=== PATIENT | female | born 1940 | race Caucasian/White ===

== ENCOUNTER 2018-09-29 00:07 | Emergency (ER) | payer MEDICARE, SELFPAY ==
[2018-09-29] VITALS (11 sets, daily range): BP systolic 105–131; BP diastolic 64–85; PULSE 72–98; RESP 18–24; TEMP 36.4–36.8; O2SAT 80–98
[2018-09-29 00:20] LABS: Abs Immature Grans 0.01 k/cumm (0.0-0.09); Absolute Basophil Count 0.04 k/cumm (0.0-0.2); Absolute Eosinophil Count 0.23 k/cumm (0.0-0.7); Absolute Lymphocyte Count 4.22 k/cumm (1.2-3.4); Absolute Monocyte Count 0.65 k/cumm (0.11-0.7); Absolute Neutrophil Count 5.46 k/cumm (1.2-6.7); Basophils % 0.4; Eosinophils % 2.2; HCT 37.1 % (36.0-46.0); HGB 11.9 g/dL (12.0-15.5); Immature Grans % 0.1; Lymphocytes % 39.8; Mean Corp. HGB Concentration 32.1 g/dL (32.0-36.0); Mean Corpuscular Hemoglobin 31.6 pg (27.0-33.0); Mean Corpuscular Volume 98.4 fL (80-95); Monocytes % 6.1; Neutrophils % 51.4; Platelet Count 282 x1000/uL (130-400); RBC 3.77 m/cumm (4.00-5.20); RBC Distribution Width 13.2 % (11.7-14.6); White Blood Cell Count 10.61 k/cumm (4.4-10.8)
--- NOTE | 2018-09-29 00:27 | W.ED.GENAD ---
Discharge Plan Disposition Patient Disposition: HOME Discharge Details Chief Complaint: SOB Clinical Impression: Acute CHF (congestive heart failure), Acute hyperkalemia Primary Care Provider: Janet Mccrary ED Provider: Jonatan Savage Home Meds and New Rx's Prescriptions: Continue calcitriol 0.25 MCG capsule 0.25 mcg PO DAILY RF: 0 metoprolol succinate 50 MG tablet extended release 24 hr 50 mg PO DAILY RF: 0 sodium bicarbonate 650 MG tablet 1 tab PO DAILY RF: 0 nitroglycerin 0.4 MG tablet, sublingual 0.4 mg Sublingual PRN PRNRF: 0 aspirin [Aspirin Low-Strength] 81 MG tablet,chewable 81 mg PO DAILY RF: 0 torsemide [Demadex] 20 MG tablet 20 mg PO DAILY RF: 0 Discharge Instructions Instructions: Pulmonary Edema (ED) Additional Instructions: Please follow-up with your primary care physician, all source collection manager and baking powder mixer. Please go to dialysis today as scheduled. Please return to the emergency department at any time for further treatment. Referrals: Tian Siddiqui MD [ [facility] STAFF PHYSICIAN] - Medical Decision Making 00:40 --patient seen immediately on arrival. 78-year-old female with history of end-stage renal disease on hemodialysis, congestive heart failure, here tonight with sudden onset of shortness of breath while she was sleeping. Patient hypoxic and tachycardic on arrival. Supplemental oxygen applied by nasal cannula and patient is much improved. She is currently saturating in the upper 90s on 4 L nasal cannula. She does have faint rales bilateral bases. I am concerned for acute CHF with flash pulmonary edema. Plan to check portable chest x-ray. I will send a BNP. Patient took a double dose of diuretic prior to arrival. Patient was given a single sublingual nitroglycerin here for preload reduction and her blood pressure decreased significantly to SBP 100. Will hold additional nitro. 1:05 -- Labs reviewed: chronic kidney disease noted, BNP elevated. cxr reviewed and interpreted by radiology: There are diffuse interstitial infiltrates present, this may represent cardiogenic versus noncardiogenic edema. An acute inflammatory process and/or infectious process/pneumonia not excluded. Patient reassessed: improved on O2, no respiratory distress, saturating 97% on NC. I recommended transfer to [facility] or [facility] for further diagnostics and treatment including dialysis. Patient refused transfer. Patient has decision-making capacity. I reviewed my specific concerns with the patient and potential that she may have life-threatening her lifestyle modifying disease that I cannot treat here and that would likely benefit from treatment at a dialysis capable facility - patient verbalized understanding of my concern, as did her , and refused transfer. 1:30 -- Patient ambulated to bathroom with no difficulty. Urinated. Saturating well with no respiratory distress off oxygen. Patient requesting discharge. I encouraged her to go to dialysis this morning and to return to the ER at any time for further treatment including expedited transfer as recommended. ECG Data Attestation: I personally reviewed and interpreted this ECG (s) as follows: (Sinus tachycardia 104 bpm, T wave inversions with ST depressions noted in lead I and aVL, normal axis) Prior ECG tracings: available for review (ST depressions and T wave inversions were noted on prior EKG 03/24/18) HPI General Mode of arrival: ambulatory. Date/Time Provider Initiated Documentation: 09/29/18 00:08. Limitations to Documentation: no limitations. Information obtained by: patient. HPI Narrative: 78yo f with history of congestive heart failure, end-stage renal disease on hemodialysis Saturday with no recently missed sessions, presents tonight with chief complaint of shortness of breath. Patient notes that she was feeling well today and went to bed around 8 PM. She woke up suddenly feeling short of breath. Shortness of breath is severe. Symptoms are similar to when she had a flareup in March. Patient has been told to take additional diuretic when she has these symptoms and did take 2 tablets of her diuretic prior to arrival. She denies associated chest pain, cough, leg pain or swelling. Related Data Home Medications Medication Instructions Recorded Confirmed calcitriol 0.25 mcg PO DAILY 06/22/14 09/29/18 aspirin [Aspirin Low-Strength] 81 mg PO DAILY 12/24/16 09/29/18 metoprolol succinate 50 mg PO DAILY 12/24/16 09/29/18 nitroglycerin 0.4 mg SUBLINGUAL PRN PRN 12/24/16 09/29/18 sodium bicarbonate 1 tab PO DAILY 12/24/16 09/29/18 torsemide [Demadex] 20 mg PO DAILY 04/02/17 09/29/18 Allergies Allergy/AdvReac Type Severity Reaction Status Date / Time No Known Allergies Allergy Unverified 09/29/18 00:28 General Stated Complaint: SOB ARIES: 2 Review of Systems Review of Systems All systems reviewed & are unremarkable except as noted in HPI and below Constitutional Denies fever(s) Cardiovascular Denies chest pain and Reports dyspnea Respiratory Denies cough and Reports dyspnea PFSH ESRD on hemodialysis (Acute) CHF (congestive heart failure) (Chronic) Medical History ESRD on hemodialysis (Acute) CHF (congestive heart failure) (Chronic) Social History Smoking/Tobacco Use Status: Never Social History Smoking/Tobacco Use Status: Never Exam Const General: cooperative and in distress respiratory Orientation: alert HENMT Head: normocephalic and atraumatic Mouth: moist mucous membranes Eyes Conjunctivae: normal conjunctivae Sclera: normal sclerae Neck Neck: trachea midline and supple Resp Auscultation: rales bilaterally in the lower lung acuña, no rhonchi and no wheezes Cardio Jugular venous pressure: no JVD Rate: regular rate and not tachycardic Rhythm: regular rhythm GI Palpation: soft, not firm, no guarding, no masses, not rigid and nontender Skin General skin exam: no rashes or lesions noted Neuro General: alert, awake, oriented x3 and tone normal Extrem General: no calf tenderness bilaterally and no edema Psych Appearance: grossly normal Mental Status: mental status grossly normal Speech and Movement: speech and movement normal Course Vital Signs Temperature 36.4 C L 09/29/18 00:21 Pulse 98 H 09/29/18 00:21 Respiratory Rate 22 09/29/18 00:21 Blood Pressure 131/85 09/29/18 00:21 Pulse Oximetry 96 09/29/18 00:21 Temperature 36.4 C L 09/29/18 00:21 Temperature Source Temporal Artery Scan 09/29/18 00:21 Pulse 98 H 09/29/18 00:21 Respiratory Rate 22 09/29/18 00:21 Respiratory Effort Labored 09/29/18 00:26 Blood Pressure 131/85 09/29/18 00:21 Blood Pressure Position Sitting 09/29/18 00:21 Pulse Oximetry 96 09/29/18 00:21 Oxygen Delivery Method Nasal Cannula 12/10/18 00:21 Oxygen Flow Rate 4 09/29/18 00:21 Pain Level 0 09/29/18 00:21 Lab/Test Results Lab/Test Results: Laboratory Tests Range/Units 09/29/18 00:15 WBC (4.4-10.8) k/cumm 10.61 RBC (4.00-5.20) m/cumm 3.77 L Hgb (12.0-15.5) g/dL 11.9 L Hct (36.0-46.0) % 37.1 MCV (80-95) fL 98.4 H MCH (27.0-33.0) pg 31.6 MCHC (32.0-36.0) g/dL 32.1 RDW (11.7-14.6) % 13.2 Plt Count (130-400) x1000/uL 282 MPV (8.0-11.0) fL 10.0 Immature Gran % 0.1 Neutrophils % 51.4 Lymphocytes % 39.8 Monocytes % 6.1 Eosinophils % 2.2 Basophils % 0.4 Absolute Neutrophils (1.2-6.7) k/cumm 5.46 Absolute Lymphocytes (1.2-3.4) k/cumm 4.22 H Absolute Monocytes (0.11-0.7) k/cumm 0.65 Absolute Eosinophils (0.0-0.7) k/cumm 0.23 Absolute Basophils (0.0-0.2) k/cumm 0.04
[2018-09-29 00:48] LABS: ALT 13 U/L (12-78); AST 16 U/L (15-37); Albumin 3.6 g/dL (3.4-5.0); Alkaline Phosphatase 65 U/L (46-116); Anion Gap 16.1 mmol/L (3-11); Bilirubin, Total 0.4 mg/dL (0.2-1.0); CO2 23.9 mmol/L (21.0-32.0); Calcium 8.9 mg/dL (8.5-10.1); Chloride 98 mmol/L (98-107); Estimated GFR 5.36 (mL/min/1.73m2); Glucose 203 mg/dL (70-100); Magnesium 2.3 mg/dL (1.8-2.4); NT-proBNP 33224 pg/mL; Potassium 4.7 mmol/L (3.5-5.1); Sodium 138 mmol/L (136-145); Total Protein 8.1 g/dL (6.4-8.2); Troponin I 0.02 ng/mL (0.00-0.06)
[2018-09-29 00:49] LABS: CREATININE 7.34 mg/dL (0.55-1.02)
[2018-09-29 00:55] LABS: BUN 62 mg/dL (7-18)
--- NOTE | 2018-09-29 00:55 | DI.RAD_ITS ---
SYMPTOM/DIAGNOSIS: SHORTNESS OF BREATH PORTABLE CHEST: Comparison is made with 24 March 2018. The heart is again noted to be grossly enlarged. The aorta is tortuous. Leads over lie the chest. There are increased interstitial markings and pulmonary artery prominence suspicious for CHF. No focal infiltrate or effusion is visible. Severe degenerative changes are seen in the shoulders, right greater than left. IMPRESSION: Cardiomegaly and CHF
--- NOTE | 2018-09-29 01:01 | DI.VRAD_ITS ---
EXAM: XR Chest, 1 View EXAM DATE/TIME: 09/29/2018 12:53 AM CLINICAL HISTORY: 78 years old, female; Signs and symptoms; Shortness of breath TECHNIQUE: XR of the chest, 1 view. COMPARISON: CR XR PORTABLE CHEST AP 09/29/2018 12:21 AM FINDINGS: Lungs: There are diffuse interstitial infiltrates present. An acute inflammatory process and/or infectious process/pneumonia are not excluded. The pulmonary vasculature is normal in caliber. Pleural space: There is no evidence of pneumothorax. There are no pleural effusions present. Heart/Mediastinum: There is moderate cardiomegaly. Vasculature: The aorta is tortuous and there is possible aneurysmal dilatation of the descending thoracic aorta. Bones/joints: The skeletal structures and soft tissues show no evidence of fracture or other acute processes. There are degenerative changes of the shoulder girdles right greater than left. Soft tissues: This may represent cardiogenic versus noncardiogenic edema. The soft tissues of the extrathoracic region are unremarkable. IMPRESSION: There are diffuse interstitial infiltrates present. This may represent cardiogenic versus noncardiogenic edema. An acute inflammatory process and/or infectious process/pneumonia are not excluded. Dictated and Authenticated by: Walter Turpin MD. Ordering:ARMANDO CONKLIN MD
--- NOTE | 2018-09-29 01:03 | NUR.NOTE ---
Nursing Note: pt able to resting semi fowlers at this time in bed without respiratory distress.
--- NOTE | 2018-09-29 01:22 | NUR.NOTE ---
Nursing Note: pt ambulated on RA to BR and around facility. SaO2 noted to range 94-96%.
== END 2018-09-29 01:44 | disposition home or self-care (01) ==
LOC: ER 01:48
PROVIDERS: Emergency Provider Student in an Organized Health Care Education/Training Program
DX: R09.02 Hypoxemia (principal); I50.9 Heart failure, unspecified; I13.2 Hypertensive heart and chronic kidney disease with heart failure and with stage 5 chronic kidney disease, or end stage renal disease; N18.6 End stage renal disease; Z99.2 Dependence on renal dialysis; E87.5 Hyperkalemia
CPT/HCPCS: 36415; 80053; 93005; 99285; 71045; 83735; 83880; 84484; 85025; 93010

== ENCOUNTER 2019-02-25 23:32 | Emergency (ER) | payer OTHER, SELFPAY ==
--- NOTE | 2019-02-25 00:15 | DI.RAD_ITS ---
SYMPTOM/DIAGNOSIS: COUGH AP AND LATERAL CHEST: The heart is enlarged. The lungs are grossly clear. No pleural effusion is seen. CONCLUSION: Cardiomegaly. No evidence of acute intrapulmonary process.
[2019-02-25 23:41] VITALS: BP 140/66; PULSE 99; RESP 18; TEMP 38.2; O2SAT 94
--- NOTE | 2019-02-25 23:45 | W.ED.GENAD ---
Discharge Plan Disposition Patient Disposition: HOME Condition: Stable Discharge Details Chief Complaint: RespSymp Clinical Impression: Cough Primary Care Provider: Janet Mccrary ED Provider: John Vidal Home Meds and New Rx's Prescriptions: New levofloxacin 750 mg tablet 750 mg PO DAILY Qty: 5 RF: 0 No Action metoprolol succinate 50 MG tablet extended release 24 hr 50 mg PO DAILY RF: 0 nitroglycerin 0.4 MG tablet, sublingual 0.4 mg Sublingual PRN PRNRF: 0 aspirin [Aspirin Low-Strength] 81 MG tablet,chewable 81 mg PO DAILY RF: 0 torsemide [Demadex] 20 MG tablet 20 mg PO DAILY RF: 0 losartan 50 mg Tablet 50 mg PO DAILY RF: 0 spironolactone 25 mg Tablet 25 mg PO DAILY RF: 0 ropinirole 0.25 mg Tablet 0.25 mg PO HS RF: 0 Discharge Instructions Instructions: Acute Cough (ED) Additional Instructions: follow up with your primary care provider especially if symptoms continue within a week Return to the emergency department if you feel more ill, or have worsening shortness of breath or chest pain/pressure Medical Decision Making 78 yo female with hx of erd on dialysis mwf who comes in with complaints of several days of worsening cough with shortness of breath. She states this started on Saturday when she was in [place], states she went to a local ED down there, had an xray and was given a dose of lasix and d/c'd. Cough has persistent so came here. is not getting anything up per pt, no chest pain or travel outside the country. She is in no distress on exam with crackles at the bases bilaterally. Is noted to have a temperature here, will obtain labs, cultures and xray and also test for influenza. pt's xray and lab work shows no acute concerning findings, probnp elevated but has no evidence of volume overload at this time and is chronically elevated. she remanis stable. Given her symptoms I feel tx for early pneumonia is indicated. She wants to go home rather than be admitted which I feel is reasonable given HD stability and well appearance. Advised f/u with pcp and return precautions given Differential Diagnosis influenza, pna, bronchitis Medical Records Medical records reviewed: Yes I reviewed the patient's medical records. Imaging Data Radiologic Study: Attestation: I personally reviewed and interpreted this imaging study as follows: Imaging: X-Ray Radiologist's impression: no acute findings Lab Data Lab results reviewed: Yes I reviewed the patient's lab results. HPI General Mode of arrival: ambulatory. Date/Time Provider Initiated Documentation: 02/25/19 23:34. Limitations to Documentation: no limitations. Information obtained by: patient. History of Present Illness 78 year old F presents to the emergency department with the chief complaint of cough, described as moderate, Patient started experiencing this day(s) (3) and it has been intermittent. No relieving factors improve symptom(s), No exacerbating factors reported . Patient notes other (short of breath). Patient did receive the following treatments prior to arrival, none Related Data Home Medications Medication Instructions Recorded Confirmed aspirin [Aspirin Low-Strength] 81 mg PO DAILY 12/24/16 02/25/19 metoprolol succinate 50 mg PO DAILY 12/24/16 02/25/19 nitroglycerin 0.4 mg SUBLINGUAL PRN PRN 12/24/16 02/25/19 torsemide [Demadex] 20 mg PO DAILY 04/02/17 02/25/19 losartan 50 mg PO DAILY 02/25/19 02/25/19 ropinirole 0.25 mg PO HS 02/25/19 02/25/19 spironolactone 25 mg PO DAILY 02/25/19 02/25/19 levofloxacin 750 mg PO DAILY #5 tab 02/26/19 Previous Rx's Medication Instructions Recorded levofloxacin 750 mg PO DAILY #5 tab 02/26/19 Allergies Allergy/AdvReac Type Severity Reaction Status Date / Time No Known Allergies Allergy Unverified 02/25/19 23:47 General ARIES: 2 Review of Systems Review of Systems All systems reviewed & are unremarkable except as noted in HPI and below Constitutional Denies weakness Cardiovascular Denies chest pain Gastrointestinal Denies abdominal pain, Denies nausea and Denies vomiting Integumentary/Breasts Denies rash Neurologic Denies weakness [facility] Social History Smoking/Tobacco Use Status: Never Drug use: Never Do you feel safe in your relationship?: Yes Exam Const General: no acute distress Orientation: alert HENMT Head: normal to inspection Ears: external ears normal General nose exam: external nose normal Mouth: moist mucous membranes Eyes General: appearance normal, both eyes and all related structures Neck Neck: normal visual inspection Resp Effort & Inspection: normal respiratory effort and able to speak in complete sentences Cardio Rate: regular rate Skin General skin exam: no rashes or lesions noted Neuro General: alert and oriented x3 Extrem General: normal to inspection Psych Mental Status: mental status grossly normal Course Lab/Test Results Lab/Test Results: 02/25/19 23:42 Blood Blood Culture - Pending 02/25/19 23:42 Blood Blood Culture - Pending
--- NOTE | 2019-02-25 23:49 | ED.GENADUL_ITS ---
Discharge Plan Disposition Patient Disposition: HOME Condition: Stable Discharge Details Chief Complaint: RespSymp Clinical Impression: Cough Primary Care Provider: Janet Mccrary ED Provider: John Vidal Home Meds and New Rx's Prescriptions: New levofloxacin 750 mg tablet 750 mg PO DAILY Qty: 5 RF: 0 No Action metoprolol succinate 50 MG tablet extended release 24 hr 50 mg PO DAILY RF: 0 nitroglycerin 0.4 MG tablet, sublingual 0.4 mg Sublingual PRN PRNRF: 0 aspirin [Aspirin Low-Strength] 81 MG tablet,chewable 81 mg PO DAILY RF: 0 torsemide [Demadex] 20 MG tablet 20 mg PO DAILY RF: 0 losartan 50 mg Tablet 50 mg PO DAILY RF: 0 spironolactone 25 mg Tablet 25 mg PO DAILY RF: 0 ropinirole 0.25 mg Tablet 0.25 mg PO HS RF: 0 Discharge Instructions Instructions: Acute Cough (ED) Additional Instructions: follow up with your primary care provider especially if symptoms continue within a week Return to the emergency department if you feel more ill, or have worsening shortness of breath or chest pain/pressure Medical Decision Making 78 yo female with hx of erd on dialysis mwf who comes in with complaints of several days of worsening cough with shortness of breath. She states this started on Saturday when she was in [place], states she went to a local ED down there, had an xray and was given a dose of lasix and d/c'd. Cough has persistent so came here. is not getting anything up per pt, no chest pain or travel outside the country. She is in no distress on exam with crackles at the bases bilaterally. Is noted to have a temperature here, will obtain labs, cultures and xray and also test for influenza. pt's xray and lab work shows no acute concerning findings, probnp elevated but has no evidence of volume overload at this time and is chronically elevated. she remanis stable. Given her symptoms I feel tx for early pneumonia is indicated. She wants to go home rather than be admitted which I feel is reasonable given HD stability and well appearance. Advised f/u with pcp and return precautions given Differential Diagnosis influenza, pna, bronchitis Medical Records Medical records reviewed: Yes I reviewed the patient's medical records. Imaging Data Radiologic Study: Attestation: I personally reviewed and interpreted this imaging study as follows: Imaging: X-Ray Radiologist's impression: no acute findings Lab Data Lab results reviewed: Yes I reviewed the patient's lab results. HPI General Mode of arrival: ambulatory . Date/Time Provider Initiated Documentation: 02/25/19 23:34 . Limitations to Documentation: no limitations . Information obtained by: patient . History of Present Illness 78 year old F presents to the emergency department with the chief complaint of cough, described as moderate, Patient started experiencing this day(s) (3) and it has been intermittent. No relieving factors improve symptom(s), No exacerbating factors reported . Patient notes other (short of breath). Patient did receive the following treatments prior to arrival, none Related Data Home Medications Medication Instructions Recorded Confirmed aspirin [Aspirin Low-Strength] 81 mg PO DAILY 12/24/16 02/25/19 metoprolol succinate 50 mg PO DAILY 12/24/16 02/25/19 nitroglycerin 0.4 mg SUBLINGUAL PRN PRN 12/24/16 02/25/19 torsemide [Demadex] 20 mg PO DAILY 04/02/17 02/25/19 losartan 50 mg PO DAILY 02/25/19 02/25/19 ropinirole 0.25 mg PO HS 02/25/19 02/25/19 spironolactone 25 mg PO DAILY 02/25/19 02/25/19 levofloxacin 750 mg PO DAILY #5 tab 02/26/19 Previous Rx's Medication Instructions Recorded levofloxacin 750 mg PO DAILY #5 tab 02/26/19 Allergies Allergy/AdvReac Type Severity Reaction Status Date / Time No Known Allergies Allergy Unverified 02/25/19 23:47 General ARIES: 2 Review of Systems Review of Systems All systems reviewed & are unremarkable except as noted in HPI and below Constitutional Denies weakness Cardiovascular Denies chest pain Gastrointestinal Denies abdominal pain, Denies nausea and Denies vomiting Integumentary/Breasts Denies rash Neurologic Denies weakness [facility] Social History Smoking/Tobacco Use Status: Never Drug use: Never Do you feel safe in your relationship?: Yes Exam Const General: no acute distress Orientation: alert HENMT Head: normal to inspection Ears: external ears normal General nose exam: external nose normal Mouth: moist mucous membranes Eyes General: appearance normal, both eyes and all related structures Neck Neck: normal visual inspection Resp Effort & Inspection: normal respiratory effort and able to speak in complete sentences Cardio Rate: regular rate Skin General skin exam: no rashes or lesions noted Neuro General: alert and oriented x3 Extrem General: normal to inspection Psych Mental Status: mental status grossly normal Course Lab/Test Results Lab/Test Results: 02/25/19 23:42 Blood Blood Culture - Pending 02/25/19 23:42 Blood Blood Culture - Pending
[2019-02-26 00:22] LABS: Absolute Basophil Count 0.02 k/cumm (0.0-0.2); Absolute Eosinophil Count 0.11 k/cumm (0.0-0.7); Absolute Lymphocyte Count 0.31 k/cumm (1.2-3.4); Absolute Monocyte Count 0.36 k/cumm (0.11-0.7); Absolute Neutrophil Count 3.61 k/cumm (1.2-6.7); Basophils % 0.5; Eosinophils % 2.5; HCT 34.3 % (36.0-46.0); HGB 11.1 g/dL (12.0-15.5); Mean Corp. HGB Concentration 32.4 g/dL (32.0-36.0); Mean Corpuscular Hemoglobin 30.2 pg (27.0-33.0); Mean Corpuscular Volume 93.5 fL (80-95); Mean Platelet Volume 10.8 fL (8.0-11.0); Monocytes % 8.2; Neutrophils % 81.8; Platelet Count 184 x1000/uL (130-400); RBC 3.67 m/cumm (4.00-5.20); RBC Distribution Width 14.3 % (11.7-14.6); White Blood Cell Count 4.41 k/cumm (4.4-10.8)
--- NOTE | 2019-02-26 00:29 | DI.VRAD_ITS ---
EXAM: XR Chest, 2 Views EXAM DATE/TIME: 02/25/2019 11:42 PM CLINICAL HISTORY: 78 years old, female; Signs and symptoms; Patient HX: Cough for 4 days TECHNIQUE: Imaging protocol: XR of the chest, 2 views. COMPARISON: SC XR PORTABLE CHEST AP 09/29/2018 12:53 AM FINDINGS: Lungs: Subtle chronic interstitial changes. No evidence of any focal consolidation. Pleural space: Unremarkable. No evidence of pneumothorax. Heart/Mediastinum: Unremarkable. Heart size within normal limits for technique. Bones/joints: Unremarkable. IMPRESSION: No acute findings. Dictated and Authenticated by: Tian Saldaña MD. Ordering:BRENDAN Lopez MD
[2019-02-26 00:38] LABS: ALT 17 U/L (12-78); AST 30 U/L (15-37); Albumin 3.5 g/dL (3.4-5.0); Alkaline Phosphatase 59 U/L (46-116); Anion Gap 8.9 mmol/L (3-11); BUN 15 mg/dL (7-18); Bilirubin, Total 0.7 mg/dL (0.2-1.0); CO2 33.1 mmol/L (21.0-32.0); CREATININE 3.39 mg/dL (0.55-1.02); Calcium 9.1 mg/dL (8.5-10.1); Chloride 94 mmol/L (98-107); Estimated GFR 13.07 (mL/min/1.73m2); Glucose 122 mg/dL (70-100); NT-proBNP 106783 pg/mL; Potassium 3.3 mmol/L (3.5-5.1); Sodium 136 mmol/L (136-145); Total Protein 7.9 g/dL (6.4-8.2)
[2019-02-26] MEDS: levoFLOXacin 500 MG, levoFLOXacin 250 MG 750 MG PO (00:44)
[2019-02-26 00:55] VITALS: BP 111/66; PULSE 95; RESP 18; TEMP 37.9; O2SAT 90
== END 2019-02-26 00:59 | disposition home or self-care (01) ==
LOC: ER 02-26 00:59
PROVIDERS: Emergency Provider Emergency Medicine
DX: J18.9 Pneumonia, unspecified organism (principal); N18.6 End stage renal disease; Z99.2 Dependence on renal dialysis
CPT/HCPCS: 80053; 87040; 87449; 99283; 71046; 83880; 85025

== ENCOUNTER 2019-11-02 09:25 | Emergency (ER) | payer OTHER, SELFPAY ==
[2019-11-02] VITALS (32 sets, daily range): BP systolic 104–124; BP diastolic 54–72; PULSE 73–93; RESP 12–23; TEMP 36.8; O2SAT 90–100
--- NOTE | 2019-11-02 09:34 | W.ED.GENAD ---
Discharge Plan Disposition Patient Disposition: HOME Condition: Improving Discharge Details Chief Complaint: Chest Pain Clinical Impression: Atypical chest pain Primary Care Provider: Janet Mccrary ED Provider: Austen Herman Home Meds and New Rx's Prescriptions: Continued B complex with C 20-folic acid 1 mg Capsule 1 mg PO DAILY RF: 0 Velphoro 500 mg Tablet,Chewable 500 mg RF: 0 metoprolol succinate 50 MG tablet extended release 24 hr 100 mg PO DAILY RF: 0 nitroglycerin 0.4 MG tablet, sublingual 0.4 mg Sublingual PRN PRNRF: 0 aspirin [Aspirin Low-Strength] 81 MG tablet,chewable 81 mg PO DAILY RF: 0 torsemide [Demadex] 20 MG tablet 20 mg PO DAILY RF: 0 losartan 50 mg Tablet 50 mg PO DAILY RF: 0 spironolactone 25 mg Tablet 25 mg PO DAILY RF: 0 ropinirole 0.25 mg Tablet 0.5 mg PO HS RF: 0 levofloxacin 750 mg tablet 750 mg PO DAILY Qty: 5 RF: 0 Discharge Instructions Instructions: Chest Pain (ED) Additional Instructions: As we discussed we will hold on antibiotics at this time but you should remain vigilant for progression of the cough, development of sputum, development of a fever, or any other acute concerns. Continue your regular medications. Return to the ER for recurrent chest discomfort, the development of difficulty breathing, or any other acute concerns. Medical Decision Making Pleasant and delightful 79-year-old female who is on hemodialysis 3 days a week. She woke today feeling normal and after approximately 2 and half hours of dialysis had 10 minutes of anterior chest pressure that felt like indigestion. She did receive 2 sublingual nitroglycerin at the dialysis center, her run finished 30 minutes early, she was brought by ambulance. She remained in no distress throughout the ambulance ride and triage. She has no other complaints. She arrives with a blood pressure 109/65, pulse is 90, afebrile and 95% on room air. Exam is without significant findings. Chest x-ray with right basilar atelectasis, cannot rule out infiltrate. I discussed with the patient and she is not had a fever or production of sputum and would prefer to avoid antibiotics. Labs are reassuring, repeat troponin was obtained and negative at 3 hours time. She is stable and improved and has had no discomfort in this institution. Will discharge to home. She understands return precautions which were discussed with the patient and her at the bedside prior to discharge Lab Data Lab results reviewed: Yes I reviewed the patient's lab results. Labs: Laboratory Results - last 24 hr 11/02/19 11/02/19 09:20 09:20 WBC 7.32 RBC 3.49 L Hgb 11.2 L Hct 34.6 L MCV 99.1 H MCH 32.1 MCHC 32.4 RDW 14.4 Plt Count 277 MPV 9.7 Immature Gran % 0.3 Neutrophils % 79.6 Lymphocytes % 11.2 Monocytes % 7.8 Eosinophils % 0.8 Basophils % 0.3 Absolute Neutrophils 5.83 Absolute Lymphocytes 0.82 L Absolute Monocytes 0.57 Absolute Eosinophils 0.06 Absolute Basophils 0.02 Sodium 141 Potassium 3.4 L Chloride 98 Carbon Dioxide 36.0 H Anion Gap 7.0 BUN 24 H Creatinine 2.77 H Estimated GFR/1.73 m2 16.46 Glucose 140 H Calcium 9.3 Magnesium 2.1 Total Bilirubin 1.0 AST 37 ALT 30 Alkaline Phosphatase 83 Troponin I < 0.05 Total Protein 7.8 Albumin 3.2 L ECG Data Attestation: I personally reviewed and interpreted this ECG (s) as follows: Interpretation: Normal sinus rhythm, the rate is 88, the QRS is narrow, there is T wave inversions in leads I and aVL that are unchanged from comparison dated September 29, 2018. There is right bundle branch block pattern present but no significant QRS widening, there is no ST segment elevation. EKG number obtained at 12:48 PM reveals normal sinus rhythm, rate of 76, the QRS is narrow and there is no ST segment elevation present. HPI General Mode of arrival: EMS. Date/Time Provider Initiated Documentation: 11/02/19 10:35. Limitations to Documentation: no limitations. Information obtained by: patient and EMS. History of Present Illness 79 year old F presents to the emergency department with the chief complaint of Transient chest pain at dialysis, described as moderate, Quality is described as dull, and is localized to the chest. Patient abdomen. Patient started experiencing this minute(s) and it has been now resolved. other things that improve symptom(s), (Resolved with 2 sublingual nitroglycerin) No exacerbating factors reported . Patient notes denies diaphoresis, headaches, loss of appetite, malaise, nausea/vomiting, shortness of breath and syncope. Patient did receive the following treatments prior to arrival, other (Nitroglycerin x2) Related Data Home Medications Medication Instructions Recorded Confirmed aspirin [Aspirin Low-Strength] 81 mg PO DAILY 12/24/16 11/02/19 metoprolol succinate 100 mg PO DAILY 12/24/16 11/02/19 nitroglycerin 0.4 mg SUBLINGUAL PRN PRN 12/24/16 11/02/19 torsemide [Demadex] 20 mg PO DAILY 04/02/17 11/02/19 losartan 50 mg PO DAILY 02/25/19 11/02/19 ropinirole 0.5 mg PO HS 02/25/19 11/02/19 spironolactone 25 mg PO DAILY 02/25/19 11/02/19 levofloxacin 750 mg PO DAILY #5 tab 02/26/19 B complex with C 20-folic acid 1 mg PO DAILY 11/02/19 11/02/19 Velphoro 500 mg 11/02/19 Previous Rx's Medication Instructions Recorded levofloxacin 750 mg PO DAILY #5 tab 02/26/19 Allergies Allergy/AdvReac Type Severity Reaction Status Date / Time allopurinol AdvReac Skin Rash Unverified 11/02/19 09:35 Influenza Virus Vaccines AdvReac Other (See Unverified 11/02/19 09:35 Comment) lisinopril AdvReac Other (See Unverified 11/02/19 09:35 Comment) Hnidntw-Cpx-Zly Reductase AdvReac Other (See Unverified 11/02/19 09:35 Inhibitor Comment) General Stated Complaint: Chest Pain ARIES: 2 Review of Systems Narrative: Patient states that she has otherwise recently been well. She does continue to make urine. 6 systems reviewed and otherwise negative [facility] Medical History CHF (congestive heart failure) (Chronic) ESRD on hemodialysis (Acute) Social History Smoking/Tobacco Use Status: Never Drug use: Never Do you feel safe in your relationship?: Yes Exam Narrative Exam Narrative: GEN: awake, alert, oriented 3. Pleasant, well groomed, interactive. HEAD: Normocephalic, atraumatic ENT: Mucous membranes moist, oropharynx unremarkable, External ear exam unremarkable EYES: PERRL, EOMI NECK: Full ROM, no DEYANIRA, no menigismus CHEST/RESP: Nontender, clear to auscultation bilateral, no wheeze/rhonchi/rales CARDIOVASCULAR: RRR, no murmur, rub jseús. 2+ Rad pulse bilateral ABDOMEN: Soft, nontender, no mass. +Bowel sounds EXT: Full ROM, no edema, no rash Neuro: Grossly normal neurologic exam, conversant, interactive. Psych: Speech fluent, thoughts congruent, affect normal Course Vital Signs Vital signs: Vital Signs Temperature 36.8 C 11/02/19 09:22 Pulse 93 H 11/02/19 09:22 Respiratory Rate 19 11/02/19 09:22 Blood Pressure 109/65 11/02/19 09:22 Pulse Oximetry 95 11/02/19 09:22 Temperature 36.8 C 11/02/19 09:22 Temperature Source Skin 11/02/19 09:22 Pulse 93 H 11/02/19 09:22 Respiratory Rate 19 11/02/19 09:22 Respiratory Effort Non-Labored 11/02/19 09:30 Blood Pressure 109/65 11/02/19 09:22 Blood Pressure Position Sitting 11/02/19 09:22 Pulse Oximetry 95 11/02/19 09:22 Oxygen Delivery Method Room Air 11/02/19 09:22 Oxygen Flow Rate 0 11/02/19 09:22 Pain Level 0 11/02/19 09:22
--- NOTE | 2019-11-02 09:45 | DI.RAD_ITS ---
EXAM: XR CHEST 2V PA LATERAL INDICATION: chest pain. COMPARISON: XR CHEST 2V PA LATERAL from 02/25/2019 TECHNIQUE: 2D digital imaging was performed. FINDINGS: The heart is enlarged. Pulmonary vasculature is within normal limits. There is an infiltrate at the right lung base. This may represent atelectasis or pneumonia. The lungs are otherwise clear. No e ffusions or pneumothoraces are identified. Degenerative changes are seen in the spine. IMPRESSION: Right basilar infiltrate. This may represent atelectasis or pneumonia.
[2019-11-02 09:59] LABS: Abs Immature Grans 0.02 k/cumm (0.0-0.09); Absolute Basophil Count 0.02 k/cumm (0.0-0.2); Absolute Eosinophil Count 0.06 k/cumm (0.0-0.7); Absolute Lymphocyte Count 0.82 k/cumm (1.2-3.4); Absolute Monocyte Count 0.57 k/cumm (0.11-0.7); Absolute Neutrophil Count 5.83 k/cumm (1.2-6.7); Basophils % 0.3; Eosinophils % 0.8; HCT 34.6 % (36.0-46.0); HGB 11.2 g/dL (12.0-15.5); Immature Grans % 0.3 %; Lymphocytes % 11.2; Mean Corp. HGB Concentration 32.4 g/dL (32.0-36.0); Mean Corpuscular Hemoglobin 32.1 pg (27.0-33.0); Mean Corpuscular Volume 99.1 fL (80-95); Mean Platelet Volume 9.7 fL (8.0-11.0); Monocytes % 7.8; Neutrophils % 79.6; Platelet Count 277 x1000/uL (130-400); RBC 3.49 m/cumm (4.00-5.20); RBC Distribution Width 14.4 % (11.7-14.6); White Blood Cell Count 7.32 k/cumm (4.4-10.8)
[2019-11-02 10:02] LABS: ALT 30 U/L (14-59); AST 37 U/L (15-37); Albumin 3.2 g/dL (3.4-5.0); Alkaline Phosphatase 83 U/L (46-116); BUN 24 mg/dL (7-18); CREATININE 2.77 mg/dL (0.55-1.02); Calcium 9.3 mg/dL (8.5-10.1); Chloride 98 mmol/L (98-107); Estimated GFR 16.46 (mL/min/1.73m2); Glucose 140 mg/dL (74-106); Magnesium 2.1 mg/dL (1.8-2.4); Potassium 3.4 mmol/L (3.5-5.1); Sodium 141 mmol/L (136-145); Total Protein 7.8 g/dL (6.4-8.2); Troponin I < 0.05 ng/Ml (<0.06)
[2019-11-02 12:41] LABS: Troponin I < 0.05 ng/Ml (<0.06)
== END 2019-11-02 13:31 | disposition home or self-care (01) ==
PROVIDERS: Emergency Provider Emergency Medicine
DX: R07.89 Other chest pain (principal); N18.6 End stage renal disease; Z99.2 Dependence on renal dialysis
CPT/HCPCS: 36415; 80053; 93005; 99285; 71046; 83735; 84484; 85025; 93010; 99284

== ENCOUNTER 2020-11-07 08:15 | Outpatient (CLI) | payer OTHER, SELFPAY ==
--- OUTSIDE RECORDS SUMMARY | 2020-11-07 08:19 | XMS_ITS | Continuity of Care Document ---
:1940 Author Organization [facility], NA DOCUMENT DISCLAIMER The information in the [facility] Continuity of Care Document represents a summary of certain health and medical information. It may not contain the complete medical history for the patient and should be independently verified. The represented time in the document is Eastern Time. PROBLEMS Problem Code Status Onset Date Pain, unspecified R52 Active October 18 0 Angina pectoris, unspecified I20.9 Active November 03, 2019 Other specified symptoms and signs involving R09.89 Active Dec the circulatory and respiratory systems Hyperkalemia E87.5 Active August 03, 2018 Hypercalcemia E83.52 Active November 10, 2017 Pure hypercholesterolemia, E78.00 Active October unspecified Moderate protein-calorie malnutrition E44.0 Active Oct Iron deficiency anemia, unspecified D50.9 Active November 01, 2017 Coagulation defect, unspecified D68.9 Active November 01, 2017 Encounter for immunization Z23 Active November 01, 2017 Encounter for screening for respiratory tuberculosis Z11.1 Active Oct Dependence on renal dialysis Z99.2 Active October 29, 2017 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 Active 2017 heart failure and with stage 5 chronic kidney disease, or end stage renal disease Acute systolic (congestive) heart failure I50.21 Active 2017 Gout, unspecified M10.9 Active October 29, 2017 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 Active Oct origin 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 pectoris Hyperlipidemia, unspecified E78.5 Active October 29, 2017 Anemia in chronic kidney disease D63.1 Active October 29, 2017 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 Active J anuary 2017 lesions End stage renal disease N18.6 Active October 29, 2017 ALLERGIES AND ADVERSE REACTIONS Substance Reaction Severity Status lisinopril Unknown Active simvastatin Unknown Active allopurinol Skin Rash Moderate Active Influenza Virus Vaccines Nausea and vomiting Moderate Active (disorder) SOCIAL HISTORY General Item Value Smoking Status Unknown if ever smoked Caregiver Characteristics No Information Available Characteristics of Home environment No Information Available MEDICATIONS Prescribed Medications for Dialysis Treatments Medication Instructions Dosage Route Start Date End Date Statu s [place]alc[place] Post (Sensipar) Dialysis, 3X Oral Active Week 30 April 04March 14, mg 2019 2020 Heparin Sodium (Porcine) Every Intravenous - Active 1,000 Units/mL Treatment 4000 push July Systemic units 2019 Iron Sucrose Every Intravenous - Active (Venofer) Treatment 100 push October mg 2020 Vitamin D (Calcitriol) Every Oral Active Oral Treatment 0.25 May 06, May 05, mcg 2019 2020 Once Acetaminophen Oral Discon tinued 325 September mg 2019 Iron Sucrose Every Intravenous - Discon tinued (Venofer) Treatment 100 push September mg 2019 Iron 1X Sucrose Week Intravenous - Discon tinued (Venofer) 50 push October mg 2020 Home Medications Medication Instructions Dosage Route Start Date End Date Statu s aspirin 81 Take mg by mouth once ORAL October Acti ve a day 1 tablet 2017 Take hydralazine 10 by mouth three ORAL Nicole Active mg times a day as 1 tablet 2020 directed Nephrocaps Take 1 mg by mouth once by mouth October Acti ve a day 1 capsule [address] under SUBLINGUAL Nicole Active 0.4 mg tongue as 1 tablet 2017 needed ropinirole Take 0.5 mg by mouth twice ORAL Activ e a day as 2 tablet June directed 2018 sevelamer Take carbonate 800 mg by mouth three ORAL Active times a day 1 tablet November with meals 2019 Take spironolactone by mouth as ORAL March Act dimas 25 mg directed 1 tablet 2018 torsemide Take 20 mg by mouth once ORAL February 21, Acti ve a day as 1 tablet 2019 directed Tylenol Take 325 mg by mouth every ORAL October Act dimas six hours as 2 tablet 2017 needed losartan Take 25 mg by mouth every ORAL Disco ntinued morning as 1 tablet October directed 2020 metoprolol Take succinate 25 mg by mouth once ORAL Discontinued a day as 1 tablet October directed 2020 VITAL SIGNS Post-Treatment Vital Signs Vital Sign Value Date / Time Blood Pressure-sitting 105/61 mmHg November 04, 2020 06:04 AM Blood Pressure-standing 113/54 mmHg November 04, 2020 06:04 AM Heart Rate 104 beats per minute November 04, 2020 06 :04 AM Respiratory Rate 14 breaths per minute November 04, 2020 0 6:04 AM Temperature 97.8 deg. F November 04, 2020 06: 04 AM Weight Vital Sign Value Date / Time Pre-Dialysis 70.00 kg November 04, 2020 06: 04 AM Post-Dialysis 69.70 kg November 04, 2020 06: 04 AM Other Other Value Date / Time Height 165 cm June 10, 2019 12:0 0 AM HEALTH CONCERNS Tuberculosis Testing TST Date Administered TST Date Read TST Result 06/03/2019 Negative (<5) mm 06/05/2019 LAB RESULTS Hematology Result Type Result Value Relevant Interpretation Date Reference Range HGB 11.0 g/dL Males: 14.0 - Low October 09, 18.0 g/dL 2019 Females: 12.0 - 16.0 g/dL HGB 11.2 g/dL Males: 14.0 - Low October 16, 18.0 g/dL 2019 Females: 12.0 - 16.0 g/dL HGB 10.5 g/dL Males: 14.0 - Low October 24, 18.0 g/dL 2020 Females: 12.0 - 16.0 g/dL HGB 11.0 g/dL Males: 14.0 - Low October 31, 18.0 g/dL 2020 Females: 12.0 - 16.0 g/dL Transferrin Sat. 24 % 20-55% - October 31, (Calc) 2020 Iron 78 mcg/dL Females: 30-160 - October 31, mcg/dL Males: 2020 45-160 mcg/dL TIBC (Calc) 324 mcg/dL 185-515 mcg/dL - October 31, 2020 UIBC 246 mcg/dL 155-355 mcg/dL - October 31, 2020 WBC (No Diff) 8.27 1000/mcL 4.8-10.8 - October 31, thous/mcL 2020 RBC 3.29 mill/mcL Males: 4.70 - Low October 31, 6.10 mill/mcL 2020 Females: 4.20 - 5.40 mill/mcL Ferritin 1028 ng/mL Males: 22 - 322 High October 31, ng/mL; Females: 2020 10 - 291 ng/mL HCT 32.7 % Males: 42 - 52% Low October 31, Females: 37 - 2020 47% Metabolic/Renal Result Type Result Value Relevant Interpretation Date Reference Range Bicarbonate 23 mEq/L 22-29 mEq/L - October 31, 2020 Potassium 5.5 mEq/L 3.5-5.1 mEq/L High October 31, 2020 Sodium 138 mEq/L 136-145 mEq/L - October 31, 2020 BUN, Post 16 mg/dL 6-19 mg/dL - November 02, 2020 URR, Calc 77 % 65 - 80% - November 02, 2020 BUN 69 mg/dL 6-19 mg/dl High November 02, 2020 Bone/Mineral Result Type Result Value Relevant Interpretation Date Reference Range PTH-Intact, Plasma 575 pg/mL 16 to 80 pg/mL High October 31, 2020 Vitamin D 1,25 17.7 pg/mL 19.9-79.3 pg/mL Low October 312020 Ca x P Product 57 < 55 High October 31, 2020 Phosphorus 6.0 mg/dL 2.6-4.5 mg/dL High October 31, 2020 Calcium, Total 9.5 mg/dL 8.4-10.2 mg/dL - October 31, 2020 Liver/Nutrition Result Type Result Value Relevant Interpretation Date Reference Range Albumin (BCG) 4.2 g/dL 3.5-5.2 g/dL - October 31, 2020 Trace Elements Result Type Result Value Relevant Interpretation Date Reference Range Aluminum 6 mcg/L 0-10 mcg/L - October 31, 2020 Infectious Diseases Result Type Result Value Relevant Interpretation Date Reference Range Hep B Surface Negative Negative - October 31, Ag (HBsAg) 2020 HCV Ab Nonreactive Non-Reactive - October 31, (anti-HCV) 2020 Hep B Surface 274 mIU/mL < 10 mIU/mL, - October 31 Ab (anti-HBs) Non- Immune 2020 DIALYSIS PRESCRIPTION Conventional Hemodialysis Data Element Value Order Date/Time October 31, 2020 Frequency 3X Week Treatment Days MonWedFri Dialyzer [id number] Optiflux Treatment Time (Total Minutes) 180 min Blood Flow Rate (mL/min) 450 mL/min Dialysate Flow Rate Autoflow 1.5 Estimated Dry Weight 70 kg Dialysate Concentrate 2.0 K, 2.5 Ca, 1.0 Mg, 100 D extrose (G2251) Sodium (mEq/L) 137 meq/L Bicarb Machine Setting (mEq/L) 38 meq/L Dialysis Access Hemodialysis-AV Fistula-Reeves sposed, Left Upper Arm, Brachial Artery to Basilic Vein Access Placed on July Arterial Needle Size 15g1 Venous Needle Size 15g1 IMMUNIZATIONS Vaccine Date Dose Route Status Hepatitis B vaccine November Intramuscular Completed 2017 40.0 mcg Hepatitis B vaccine June 02 Intramuscular 2017 40.0 mcg Hepatitis B vaccine January 30 Intramuscular 2017 40.0 mcg Hepatitis B vaccine December 30 Intramuscular 2017 40.0 mcg pneumococcal July Intramuscular Complet ed conjugate vaccine 2018 0.5 mL Hepatitis B vaccine July Intramuscular Completed 2018 40.0 mcg ADVANCE DIRECTIVES Directive Description Ordered By Effective Date Resuscitation status Full Code Reuben Adanche Nov 03 1 DIALYSIS TREATMENTS Conventional Hemodialysis Date Pre-Treatment Post-Treatment Duration BFR Dialysate Dialyzer Dialysis Meds Vitals Vitals (hr) (mL/min) Access Admin October Weight 71.60 Weight 70.80 02:04:00 452 2.0 K, 180nre Hemodia lysis-AV Fistula-Transposed, Left Upper Arm, Brachial Artery to Basilic Vein - 2020 kg kg 2.5 Ca, Optiflux Access Plac ed on July 29, 2017 1.0 Mg, 100 Dextrose (G2251) Blood Pressure-sitting 110/92 mmHg Blood Pressure-sitting 11 4/62 mmHg Heart Rate 97 beats per Blood Pressure-standing 108/79 m mHg minute Respiratory Rate 18 breaths per Heart Rate 82 beats per minute minute Temperature 96.8 deg. F Respiratory Rate 14 breaths per minute - - Temperature 97.6 deg. F October Weight 71.20 Weight 70.10 03:03:00 440 2.0 K, 160nre Hemodia lysis-AV Fistula-Transposed, Left Upper Arm, Brachial Artery to Basilic Vein Cinacalcet (Sensipar); 30mg,Oral 2020 kg kg 2.5 Ca, Optiflux Access Plac ed on July 29, 2017 Vitamin D (Calcitriol) Oral; 0.25mcg,Oral 1.0 Mg, 100 Dextrose (G2251) Blood Pressure-sitting 117/47 mmHg Blood Pressure-sitting 98 /72 mmHg Blood Pressure-standing 95/76 mmHg Blood Pressure-standing 120/74 mmHg Heart Rate 62 beats per Heart Rate 53 beats per minute minute Respiratory Rate 15 breaths per Respiratory Rate 15 breaths per minute minute Temperature 97.2 deg. F Temperature 97.2 deg. F October Weight 70.00 Weight 69.70 03:02:00 420 2.0 K, 160nre Hemodia lysis-AV Fistula-Transposed, Left Upper Arm, Brachial Artery to Basilic Vein Cinacalcet (Sensipar); 30mg,Oral 15, 2020 kg kg 2.5 Ca, Optiflux Access Plac ed on July 29, 2017 Iron Sucrose (Venofer); 100mg,Intravenous - push 1.0 Mg, Vitamin D (C alcitriol) Oral; 0.25mcg,Oral 100 Dextrose (G2251) Blood Pressure-sitting 117/69 mmHg Blood Pressure-sitting 10 5/61 mmHg Blood Pressure-standing 116/60 mmHg Blood Pressure-standing 113/54 mmHg Heart Rate 109 beats per Heart Rate 104 beats per minute minute Respiratory Rate 12 breaths per Respiratory Rate 14 breaths per minute minute Temperature 97.8 deg. F Temperature 97.8 deg. F
--- NOTE | 2020-11-07 10:30 | RT.EKG_ITS ---
APPROVED REPORT Exam: Resting ECG Patient Location: O HR:98 bpm ECG Measurements Heart Rate 98 AXIS AK 176 P 2 QRSd 97 QRS -35 QT 400 T 112 QTc 513 Conclusion Sinus rhythm...normal P axis, V-rate 60- 99 LVH with secondary repolarization abnormality...multi-LVH criteria, abnrm ST-T Inferior infarct, old...Q >35mS, II III aVF Prolonged QT interval...QTc >500mS
== END 2020-11-07 08:35 ==
DX: I25.10 Atherosclerotic heart disease of native coronary artery without angina pectoris (principal); I25.2 Old myocardial infarction
CPT/HCPCS: 93005; 93010

== ENCOUNTER 2021-06-02 09:51 | Emergency (ER) | payer OTHER, SELFPAY ==
[2021-06-02] VITALS (9 sets, daily range): BP systolic 91–102; BP diastolic 59–64; PULSE 81–90; RESP 20; TEMP 36.5; O2SAT 93–98
--- NOTE | 2021-06-02 10:15 | DI.US_ITS ---
Exam(s) US LOWER EXTREMITY VENOUS LT EXAM: US LOWER EXTREMITY VENOUS LT CLINICAL HISTORY: left thigh pain TECHNIQUE: Left lower extremity venous ultrasound performed using grayscale, color-flow, and spectra l Doppler analysis. COMPARISON: No exams were available for comparison FINDINGS: The left common femoral, femoral and popliteal veins demonstrate normal compressibility, augmentation , and color Doppler. The posterior tibial veins are patent. The saphenofemoral junction is unremarka ble. There is no evidence of a Walker cyst. There is edema seen in the soft tissues of the lower leg . IMPRESSION: No DVT. DATA REPOSITORY:
--- NOTE | 2021-06-02 10:15 | DI.RAD_ITS ---
Exam(s) XR HIP LT COMPLETE AP PELVIS EXAM: XR HIP LT COMPLETE AP PELVIS CLINICAL HISTORY: left hip pain. TECHNIQUE: 2D digital imaging was performed. COMPARISON: No exams were available for comparison FINDINGS: The bones are osteopenic. No acute fracture or dislocation is present. There are marked degenerativ e changes in the right hip with joint space narrowing, subchondral sclerosis and cysts and periarticu lar spurring. The left hip is well maintained. The sacrum is largely obscured by overlying bowel. The visualized sacroiliac joints and symphysis pubis appear intact. There are [id number] degen erative changes seen in the lower lumbar spine. Atherosclerosis is present. There is a moderate marsha unt of chain stool throughout the colon suggesting constipation. IMPRESSION: 1. No acute fracture or dislocation. 2. Marked osteoarthritis of the right hip. 3. Constipation. 4. Atherosclerosis. DATA REPOSITORY: RADIATION DOSE DELIVERED:
--- NOTE | 2021-06-02 10:37 | ED.GENADUL_ITS ---
Discharge Plan Disposition Patient Disposition: HOME Condition: Stable Discharge Details Clinical Impression: Hip pain, left Primary Care Provider: Janet Mccrary ED Provider: Johanna Savage Home Meds and New Rx's Prescriptions: Continued B complex with C 20-folic acid 1 mg Capsule 1 mg PO DAILY RF: 0 Velphoro 500 mg Tablet,Chewable 500 mg RF: 0 hydroxyzine HCl 25 mg tablet 25 mg PO HS RF: 0 metoprolol succinate 50 MG tablet extended release 24 hr 100 mg PO DAILY RF: 0 nitroglycerin 0.4 MG tablet, sublingual 0.4 mg Sublingual PRN PRNRF: 0 aspirin [Aspirin Low-Strength] 81 MG tablet,chewable 81 mg PO DAILY RF: 0 torsemide [Demadex] 20 MG tablet 40 mg PO DAILY RF: 0 losartan 50 mg Tablet 50 mg PO DAILY RF: 0 spironolactone 25 mg Tablet 25 mg PO DAILY RF: 0 ropinirole 0.25 mg Tablet 0.5 mg PO HS RF: 0 Discharge Instructions Instructions: Hip Pain (ED), Leg Pain (ED) Additional Instructions: Please return immediately to the emergency department if you develop any new or worsening symptoms, if your condition does not improve as expected, or if you become otherwise concerned. It is extremely important that you call soon as possible to make an appointment to be seen in follow-up for this visit by your primary care doctor and your orthopedic surgeon. Referrals: Janet Mccrary MD [Primary Care Provider] - Ernesto Mcgrath MD [ [facility] STAFF PHYSICIAN] - Discharge Data Discharge Date/Time-TO BE ENTERED AT DEPARTURE: 06/02/21 14:35 Medical Decision Making Irena Handy is an 80-year-old woman with a history of CHF, end-stage renal disease on dialysis who presented to the emergency department with left hip pain over the past 2 weeks in the setting of frequent falls and chronic right hip pa in. On exam patient is well and nontoxic-appearing. There is trace edema of the left lower extremity as compared to the right lower extremity. Tenderness to palpation of the left proximal anterior thigh and left inguinal area. No overlying skin changes, no mass. Left lower extremity is neurovascularly intact. Range of motion of the left hip is intact but somewhat limited secondary to pain. Concern for pelvic fracture, bony pathology of the left hip, DVT, other. Exam/history at this time not consistent with sepsis, pulmonary embolism, septic arthritis, abscess, other infectious etiologies symptoms. Plan for x-rays, US. X-rays and ultrasound negative for acute process. Given patient with pain significantly limiting mobility, plan for CT of the left hip for further evaluation. CT negative for acute process. Discussed results with patient and her , they state that they are able to manage fine at home with patient's current mobility issues, and patient states that she is able to tolerate her pain. Plan for outpatient follow-up with orthopedics, PCP. I had a lengthy discussion with Patient regarding return to emergency department precautions, home care, and importance of outpatient follow-up. Pt verbalizes understanding of the plan and is amenable. Patient discharged to home with clear plan for outpatient follow- up. All questions were answered. Disposition decision was made weighing the risks and benefits of hospitalization versus outpatient treatment, the risk for further decompensation, and the patient's wishes. Medical Records Medical records reviewed: Yes I reviewed the patient's medical records. Imaging Data Radiologic Study: Attestation: I personally reviewed and interpreted this imaging study as follows: Radiologist's impression: EXAM: US LOWER EXTREMITY VENOUS LT CLINICAL HISTORY: left thigh pain TECHNIQUE: Left lower extremity venous ultrasound performed using grayscale, color-flow, and spectral Doppler analysis. COMPARISON: No exams were available for comparison FINDINGS: The left common femoral, femoral and popliteal veins demonstrate normal compressibility, augmentation, and color Doppler. The posterior tibial veins are patent. The saphenofemoral junction is unremarkable. There is no evidence of a Walker cyst. There is edema seen in the soft tissues of the lower leg. IMPRESSION: No DVT. EXAM: XR HIP LT COMPLETE AP PELVIS CLINICAL HISTORY: left hip pain. TECHNIQUE: 2D digital imaging was performed. COMPARISON: No exams were available for comparison FINDINGS: The bones are osteopenic. No acute fracture or dislocation is present. There are marked degenerative changes in the right hip with joint space narrowing, subchondral sclerosis and cysts and periarticular spurring. The left hip is well maintained. The sacrum is largely obscured by overlying bowel. The visualized sacroiliac joints and symphysis pubis appear intact. There are tihx-hx-zmfhmido degenerative changes seen in the lower lumbar spine. Atherosclerosis is present. There is a moderate amount of chain stool throughout the colon suggesting constipation. IMPRESSION: 1. No acute fracture or dislocation. 2. Marked osteoarthritis of the right hip. 3. Constipation. 4. Atherosclerosis. EXAM: CT LOWER EXTREMITY LT WO CLINICAL HISTORY: left hip and proximal thigh pain. TECHNIQUE: Imaging Protocol: Axial computed tomography images with coronal and sagittal reformatted images were created and reviewed. COMPARISON: No exams were available for comparison FINDINGS: No acute fracture or dislocation. There is atherosclerosis. Diverticulosis of the sigmoid colon is noted but no evidence of acute diverticulitis. IMPRESSION: No acute fracture or dislocation. HPI General Date/Time Provider Initiated Documentation: 06/02/21 09:56 . Limitations to Documentation: no limitations . Information obtained by: patient, family, RN notes reviewed and old records reviewed . HPI Narrative: Irena Handy is an 80 y/o woman with history of CHF, end-stage renal disease on hemodialysis presenting with chief complaint left hip pain. Patient reports that she has a long history of right hip pain, has had steroid multiple injections into the right hip. Patient reports that over the last 2 weeks she has had new pain in her left hip. Patient reports there was no trauma or known inciting event that caused pain, although she reports that she does have frequent falls.. Patient reports that she has had gradually worsening pain in the left upper anterior thigh that is worse with moving her her left hip. Patient reports that she was at dialysis today and discussed this with the care team at dialysis, who thought that she should come to the ED to be evaluated for blood clot. Patient and her also reports that they have noticed what feels like a lump in the patient's anterior thigh in the area of pain. Patient denies any other new pain, fever, vomiting, cough, shortness of breath, rash, numbness, weakness. Patient's reports that patient has significant mobility issues at baseline, largely due to her chronic right hip pain, but she has become increasingly more immobile over the past 2 weeks with the onset of left hip pain. Has been eating and drinking as usual. Received full dialysis session this morning without complication. Patient states she is concerned that her chronic right hip pain has changed her gait and this may be now causing pain in her left hip. Related Data Home Medications Medication Instructions Recorded Confirmed aspirin [Aspirin Low-Strength] 81 mg PO DAILY 12/24/16 06/02/21 metoprolol succinate 100 mg PO DAILY 12/24/16 06/02/21 nitroglycerin 0.4 mg SUBLINGUAL PRN PRN 12/24/16 06/02/21 torsemide [Demadex] 40 mg PO DAILY 04/02/17 06/02/21 losartan 50 mg PO DAILY 02/25/19 06/02/21 ropinirole 0.5 mg PO HS 02/25/19 06/02/21 spironolactone 25 mg PO DAILY 02/25/19 06/02/21 B complex with C 20-folic acid 1 mg PO DAILY 11/02/19 11/02/19 Velphoro 500 mg 11/02/19 hydroxyzine HCl 25 mg PO HS 06/02/21 06/02/21 Allergies Allergy/AdvReac Type Severity Reaction Status Date / Time allopurinol AdvReac Skin Rash Unverified 06/02/21 10:03 Influenza Virus Vaccines AdvReac Other (See Unverified 06/02/21 10:03 Comment) lisinopril AdvReac Other (See Unverified 06/02/21 10:03 Comment) Vewksxw-Rin-Eom Reductase AdvReac Other (See Unverified 06/02/21 10:03 Inhibitor Comment) General Stated Complaint: Orthopedic ARIES: 3 Review of Systems Narrative: Constitutional: denies fevers Eyes: denies eye pain ENT: denies ear pain, dental pain, sore throat Cardiovascular: denies chest pain, edema Respiratory: denies SOB, cough GI: denies abdominal pain, vomiting, diarrhea : denies flank pain MSK: denies back pain, neck pain, reports left hip pain, chronic right hip pain Skin: denies rash Neuro: denies headaches, numbness, weakness PFS Medical History (Updated 06/02/21 @ 14:22 by Johanna Savage MD) CHF (congestive heart failure) ESRD on hemodialysis Social History Smoking/Tobacco Use Status: Never Smoking risk assessment performed?: Yes Drug use: Never Do you feel safe in your relationship?: Yes Exam Narrative Exam Narrative: Constitutional: well and [id number], pleasant, conversing normally HENT: head atraumatic/normocephalic/normal inspection, mucous membranes moist Eyes: conjunctiva normal, sclera normal, pupils 3mm b/l Neck: no stridor, normal ROM, trachea midline Resp: normal work of breathing, speaking in full sentences Cardio: normal rate, normal rhythm Skin: warm, dry, normal color, no rash Neuro: alert, not altered, grossly non-focal, normal tone Ext: Trace nonpitting edema of the left lower extremity as compared to the right lower extremity. Tenderness to palpation of the left proximal anterior thigh and left inguinal area. No tenderness to palpation of the anterior lateral left hip. Patient is able to range left hip, but ranging is slow and somewhat limited secondary to pain. DP pulses intact and symmetric. There is no posterior calf tenderness to palpation bilaterally. Bilateral feet warm and well-perfused. Sensation intact bilateral distal lower extremities. Psych: normal mood, normal affect, normal behavior Course Vital Signs Vital signs: Vital Signs Temperature 36.5 C 06/02/21 10:01 Pulse 89 06/02/21 10:01 Respiratory Rate 20 06/02/21 10:01 Blood Pressure 97/62 L 06/02/21 10:01 Pulse Oximetry 95 06/02/21 10:01 Temperature 36.5 C 06/02/21 10:01 Temperature Source Skin 06/02/21 10:01 Pulse 89 06/02/21 10:01 Respiratory Rate 20 06/02/21 10:01 Respiratory Effort Non-Labored 06/02/21 10:08 Blood Pressure 97/62 L 06/02/21 10:01 Blood Pressure Position Sitting 06/02/21 10:01 Pulse Oximetry 95 06/02/21 10:01 Oxygen Delivery Method Room Air 06/02/21 10:01 Oxygen Flow Rate 0 06/02/21 10:01 Pain Level 10 06/02/21 10:01
--- NOTE | 2021-06-02 12:45 | DI.CT_ITS ---
Exam(s) CT LOWER EXTREMITY LT WO EXAM: CT LOWER EXTREMITY LT WO CLINICAL HISTORY: left hip and proximal thigh pain. TECHNIQUE: Imaging Protocol: Axial computed tomography images with coronal and sagittal reformatted images were created and reviewed. COMPARISON: No exams were available for comparison FINDINGS: No acute fracture or dislocation. There is atherosclerosis. Diverticulosis of the sigmoid colon is noted but no evidence of acute diverticulitis. IMPRESSION: No acute fracture or dislocation. Results of this exam have been verbally communicated with provider.. RADIATION DOSE DELIVERED: 450.22mGy.cm Total DLP 450.22mGy.cm Total DLP DATA REPOSITORY: All CT scans at this facility are submitted to the National Radiology Data Registry (NRDR) Dose Index Registry (DIR) with the [employer] (A[employer]). RADIATION OPTIMIZATION: All CT scans at this facility use at least one of these dose optimization te chniques: automated exposure control; mA and/or kV adjustment per patient size (includes targeted exa ms where dose is matched to clinical indication); or iterative reconstruction.
== END 2021-06-02 14:35 | disposition home or self-care (01) ==
PROVIDERS: Emergency Provider Student in an Organized Health Care Education/Training Program
DX: M25.512 Pain in left shoulder (principal); R22.42 Localized swelling, mass and lump, left lower limb; R29.6 Repeated falls
CPT/HCPCS: 99284; 73502; 73700; 93971

== ENCOUNTER 2021-07-27 11:57 | Emergency (ER) | payer OTHER, SELFPAY ==
[2021-07-27 12:03] VITALS: BP 111/91; PULSE 121; RESP 16; TEMP 36.6; O2SAT 98
[2021-07-27 12:16] VITALS: RESP 24
--- NOTE | 2021-07-27 12:57 | ED.GENADUL_ITS ---
Discharge Plan Disposition Patient Disposition: HOME Condition: Stable Discharge Details Clinical Impression: Hip pain, right Primary Care Provider: Janet Mccrary ED Provider: Thomas Dos Santos Home Meds and New Rx's Prescriptions: New prednisone 20 mg tablet 60 mg PO DAILY 5 Days Qty: 15 RF: 0 oxycodone-acetaminophen [Percocet] 5-325 mg tablet 1 tab PO TID PRNQty: 8 RF: 0 Continued B complex with C 20-folic acid 1 mg Capsule 1 mg PO DAILY RF: 0 Velphoro 500 mg Tablet,Chewable 500 mg RF: 0 hydroxyzine HCl 25 mg tablet 25 mg PO HS RF: 0 metoprolol succinate 50 MG tablet extended release 24 hr 100 mg PO DAILY RF: 0 nitroglycerin 0.4 MG tablet, sublingual 0.4 mg Sublingual PRN PRNRF: 0 aspirin [Aspirin Low-Strength] 81 MG tablet,chewable 81 mg PO DAILY RF: 0 torsemide [Demadex] 20 MG tablet 40 mg PO DAILY RF: 0 losartan 50 mg Tablet 50 mg PO DAILY RF: 0 spironolactone 25 mg Tablet 25 mg PO DAILY RF: 0 ropinirole 0.25 mg Tablet 0.5 mg PO HS RF: 0 Discharge Instructions Instructions: Hip Pain (ED) Additional Instructions: At this time you have been given IM Valium, morphine, topical lidocaine and oral prednisone. Take oral Percocet and prednisone as directed, remember Percocet may cause drowsiness and/or constipation. You may want to take wlia-irp-ftljqey stool softener while taking this medication. Cool and/or warm compresses every 2 hours for 20 minutes. Gentle stretching as tolerated. Rest, elevate as tolerated. Please watch for new or worsening symptoms and return to the ER for any concerns. I strongly recommend contacting your primary care provider later today or tomorrow to discuss your ongoing hip pain and need for outpatient reevaluation. Referral to orthopedics and/or pain management is likely indicated for your ongoing discomfort. Discharge Data Discharge Date/Time-TO BE ENTERED AT DEPARTURE: 07/27/21 15:19 Medical Decision Making This is an 81-year-old female who reports chronic right hip pain, SD with stent, dialysis on Saturday, Saturday, Saturday, presenting for acute on chronic hip pain. Patient states that she has already been seen by orthopedics, had x-rays and MRIs which revealed yoym-dn-jhlz needs a total hip replacement, but is not a surgical candidate. She denies recent illness or trauma, denies fever, rash, other joint pain. Patient denies any abdominal pain, nausea, vomiting, dysuria, constipation. Afebrile, no evidence of obvious trauma, septic joint, DVT, arterial occlusion, etc. Patient states that in the past she has had painful flareups that steroids have helped. At this time she appears uncomfortable, mild tachycardia but she is afebrile, no evidence of septic joint. Given there is been no recent trauma, she has already had imaging both plain films and MRI, likely little benefit to repeat these today. Discussed options with patient and daughter in a very candid conversation. Their primary concern today is that of pain control. They are agreeable to obtaining referrals through their primary care provider to pursue second opinion through orthopedics or pain management. Will provide 4 mg IM morphine, a single Lidoderm patch, and 60 p.o. prednisone. Upon reevaluation patient reports minimal relief of her discomfort, reports that the pain is now coming in waves and and spasms. Will treat with IM Valium, 5 mg. Upon reevaluation heart rate is now in the 90s. Patient does appear more comfortable but states that her pain is still moderate and at times is more severe, especially with movement. Had a long conversation both with patient and family regarding pain control, expectations, disposition, etc. Patient is a dialysis patient and therefore I could not admit her here to our facility for pain control. Discussed that this would need to happen at dialysis center, could recheck to [facility] to discuss admission for pain control. At this time they would like to trial going home but concern for increased pain with ambulation to vehicle, getting into a vehicle, getting home, etc. Will provide another dose of 4 mg IM prior to discharge. Will provide prescription for short-term analgesia with Percocet as well as a steroid burst. Strict discharge and return precautions provided. Otherwise encouraged contacting their primary care provider for referral to orthopedics and/or pain management for ongoing analgesia of her chronic right hip pain. Patient and daughter are comfortable with this plan and have no additional questions or concerns. This documentation was generated using [employer] system, please disregard any oddities of phrase or misspellings. Medical Records Medical records reviewed: Yes I reviewed the patient's medical records. HPI General Mode of arrival: wheelchair . Date/Time Provider Initiated Documentation: 07/27/21 12:15 . Limitations to Documentation: no limitations . Information obtained by: patient and family . HPI Narrative: This is an 81-year-old female, past medical history that includes chronic right hip pain described as bmac-yd-jhyr, dialysis patient every Saturday, Saturday, Saturday, hypertension, CHF CAD, coronary stents, gout, presenting to the ER for acute on chronic right hip pain. Patient states she has been seen by an orthopedic for this in the past, told given her other medical problems she has not a candidate for hip surgery but needs a total hip replacement. She has had steroid injections in the area which did help previously but now they are no longer helping. She denies fever, chest pain, shortness of breath, numbness, tingling, weakness, pain or swelling in her legs, recent trauma or illness. She states that the pain has been getting worse and worse over the past couple of weeks but this morning it is worse than usual. Patient states that when she has had a flareup of pain in the past, treatment with oral steroids has been very benefi cial. She states that her providers are questioning if she has polymyalgia rheumatica given her ongoing discomfort but this has not been confirmed. Patient did try zqzr-cen-xzsuynu pain patch with little relief of her discomfort Related Data Home Medications Medication Instructions Recorded Confirmed aspirin [Aspirin Low-Strength] 81 mg PO DAILY 12/24/16 07/27/21 metoprolol succinate 100 mg PO DAILY 12/24/16 07/27/21 nitroglycerin 0.4 mg SUBLINGUAL PRN PRN 12/24/16 07/27/21 torsemide [Demadex] 40 mg PO DAILY 04/02/17 07/27/21 losartan 50 mg PO DAILY 02/25/19 07/27/21 ropinirole 0.5 mg PO HS 02/25/19 07/27/21 spironolactone 25 mg PO DAILY 02/25/19 07/27/21 B complex with C 20-folic acid 1 mg PO DAILY 11/02/19 07/27/21 Velphoro 500 mg 11/02/19 hydroxyzine HCl 25 mg PO HS 06/02/21 07/27/21 oxycodone-acetaminophen [Percocet] 1 tab PO TID PRN #8 tab 07/27/21 prednisone 60 mg PO DAILY 5 Days #15 tab 07/27/21 Previous Rx's Medication Instructions Recorded oxycodone-acetaminophen [Percocet] 1 tab PO TID PRN #8 tab 07/27/21 prednisone 60 mg PO DAILY 5 Days #15 tab 07/27/21 Allergies Allergy/AdvReac Type Severity Reaction Status Date / Time allopurinol AdvReac Skin Rash Unverified 07/27/21 12:08 Influenza Virus Vaccines AdvReac Other (See Unverified 07/27/21 12:08 Comment) lisinopril AdvReac Other (See Unverified 07/27/21 12:08 Comment) Zxmnlvt-GJY-GiC Reductase AdvReac Other (See Unverified 07/27/21 12:08 Inhibitor Comment) [Kaoogud-Gyy-Iym Reductase Inhibitor] General Stated Complaint: GenMedical ARIES: 3 Review of Systems Constitutional Constitutional: Denies fever(s) and Denies weakness Cardiovascular Cardiovascular: Denies chest pain and Denies dyspnea Respiratory Respiratory: Denies dyspnea Musculoskeletal Musculoskeletal: Denies deformity, Reports arthralgias, Denies numbness, Reports stiffness and Denies tingling Integumentary/Breasts Skin/Breast: Denies erythema Neurologic Neurologic: Denies numbness, Denies tingling and Denies weakness [facility] Medical History CHF (congestive heart failure) ESRD on hemodialysis Social History Smoking/Tobacco Use Status: Never Smoking risk assessment performed?: Yes Drug use: Never Details: cbd Do you feel safe in your relationship?: Yes Exam Const General: cooperative, healthy appearing and other (Patient appears uncomfortable) Orientation: alert, awake and oriented x3 HENMT Head: normal to inspection, normocephalic and atraumatic Eyes General: appearance normal, both eyes and all related structures Conjunctivae: conjunctivae normal Neck Neck: normal visual inspection, full ROM, trachea midline and supple Resp Effort & Inspection: normal respiratory effort and able to speak in complete sentences Auscultation: clear to auscultation bilaterally Cardio Rate: tachycardic (106) Rhythm: regular rhythm GI Inspection: normal to inspection Palpation: soft, not firm, no guarding, no pulsatile masses and nontender Back/Spine/Pelvis Back: No back tenderness Skin General skin exam: no rashes or lesions noted Neuro General: patient alert, patient awake, patient oriented x3, moves all extremities and no focal motor deficits Cognition: normal cognition Speech: speech normal Gait: antalgic and gait assisted Motor: muscle tone normal throughout and strength 5/5 throughout Sensory Exam: no sensory deficits noted Extrem General: full ROM, capillary refill normal, no calf tenderness and pedal edema bilaterally non-pitting and 1+ Right lower extremity: full ROM, normal capillary refill, hip/thigh Details: normal to inspection, tenderness and normal ROM; no ecchymosis, no deformity and no unusual warmth, knee Details: normal to inspection and normal ROM; no tenderness, lower leg Details: no tenderness, no localized swelling and no palpable cords, ankle Details: normal to inspection and normal ROM; no tenderness and foot Details: normal capillary refill, normal to inspection and toes with normal ROM; no tenderness Upper/lower leg/hip images: 1. Inspection is unremarkable. There is no erythema, warmth, ecchymosis. Skin is intact. There is no bony point tenderness but there is diffuse lateral and anterior discomfort. Patient with full range of motion. I unable to appreciate a normal femoral pulse as well as a normal dorsalis pedal pulse and capillary refill. There is no pallor. Patient denies any numbness, tingling, weakness. She does have full range of motion of her right hip and is able to stand and sit but her pain is made worse with movement. Psych Appearance: grossly normal Mental Status: mental status grossly normal Course Vital Signs Vital signs: Vital Signs Temperature 36.6 C 07/27/21 12:03 Pulse 121 H 07/27/21 12:03 Respiratory Rate 16 07/27/21 12:03 Blood Pressure 111/91 H 07/27/21 12:03 Pulse Oximetry 98 07/27/21 12:03 Temperature 36.6 C 07/27/21 12:03 Temperature Source Skin 07/27/21 12:03 Pulse 121 H 07/27/21 12:03 Respiratory Rate 24 07/27/21 12:16 Respiratory Effort 07/27/21 12:16 Respiratory Depth Normal 07/27/21 12:16 Respiratory Pattern Normal 07/27/21 12:16 Blood Pressure 111/91 H 07/27/21 12:03 Blood Pressure Position Sitting 07/27/21 12:03 Pulse Oximetry 98 07/27/21 12:03 Oxygen Delivery Method Room Air 07/27/21 12:03 Oxygen Flow Rate 0 07/27/21 12:03 Pain Level 10 07/27/21 12:03
[2021-07-27] MEDS: Lidocaine 5% Patch 1 PATCH TP (13:24)
[2021-07-27] MEDS: predniSONE 20 MG TAB 60 MG PO (13:24)
[2021-07-27] MEDS: diazePAM 10 MG/2 ML SYR 5 MG IM (13:48)
[2021-07-27 14:59] VITALS: BP 105/62; PULSE 99; RESP 16; TEMP 36.8; O2SAT 94
[2021-07-27 15:15] VITALS: BP 105/72; PULSE 99; RESP 17; TEMP 36.8; O2SAT 94
== END 2021-07-27 15:19 | disposition home or self-care (01) ==
PROVIDERS: Emergency Provider Physician Assistant
DX: M25.551 Pain in right hip (principal); G89.29 Other chronic pain
CPT/HCPCS: 96372; 99284; 99283; J3360; J7512

== ENCOUNTER 2021-09-27 13:02 | Outpatient (REF) | payer OTHER, SELFPAY ==
[2021-09-27 13:29] LABS: Abs Immature Grans 0.01 10^3/uL (0.0-0.06); Absolute Basophil Count 0.04 10^3/uL (0.0-0.2); Absolute Eosinophil Count 0.04 10^3/uL (0.0-0.7); Absolute Lymphocyte Count 0.64 10^3/uL (1.2-3.4); Absolute Monocyte Count 0.42 10^3/uL (0.1-0.8); Absolute Neutrophil Count 3.56 10^3/uL (1.2-6.7); Basophils % 0.8; Eosinophils % 0.8; HCT 33.3 % (36.0-46.0); HGB 10.5 g/dL (11.2-15.7); Immature Grans % 0.2; Lymphocytes % 13.6; MCH 32.1 pg (27.0-33.0); MCHC 31.5 % (32.0-36.0); MCV 101.8 fL (80-95); MPV 10.6 fL (8.0-11.0); Monocytes % 8.9; Neutrophils % 75.7; Nucleated RBC 0 %; Platelet Count 207 10^3/uL (130-400); RBC 3.27 10^6/uL (3.93-5.22); RDW 16.5 % (11.7-14.6); RDW-SD 60.9 fL; WBC 4.71 10^3/uL (4.4-10.8)
[2021-09-27 13:49] LABS: ALT 7 U/L (14-59); AST 23 U/L (15-37); Albumin 2.8 g/dL (3.4-5.0); Alkaline Phosphatase 104 U/L (46-116); Anion Gap 5.6 mmol/L (3-11); BUN 18 mg/dL (7-18); Bilirubin, Total 0.7 mg/dL (0.2-1.0); CO2 36.4 mmol/L (21.0-32.0); CREATININE 2.2 mg/dL (0.55-1.02); Calcium 9.1 mg/dL (8.5-10.1); Chloride 97 mmol/L (98-107); Estimated GFR 21.37 (mL/min/1.73m2); Glucose 106 mg/dL (74-106); Potassium 3.6 mmol/L (3.5-5.1); Sodium 139 mmol/L (136-145); Total Protein 7.5 g/dL (6.4-8.2)
== END 2021-09-27 13:03 | disposition home or self-care (01) ==
LOC: LBN 13:02
PROVIDERS: Visit Provider Nurse Practitioner Family
DX: A41.1 Sepsis due to other specified staphylococcus (principal); B95.61 Methicillin susceptible Staphylococcus aureus infection as the cause of diseases classified elsewhere; M00.051 Staphylococcal arthritis, right hip
CPT/HCPCS: 80053; 85025

== ENCOUNTER 2021-10-17 13:44 | Outpatient (RCR) | payer OTHER, SELFPAY ==
[2021-10-17] MEDS: ceFAZolin 3,000 MG in Normal Saline 100 ML 200 MG IVPB (14:32)
[2021-10-17] MEDS: Normal Saline Flush 10 ML SYR IVP (14:32)
== END 2021-10-20 23:59 | disposition home or self-care (01) ==
LOC: INF 13:44
PROVIDERS: Visit Provider Internal Medicine
DX: L03.116 Cellulitis of left lower limb (principal); Z79.2 Long term (current) use of antibiotics
CPT/HCPCS: 96365; J0690

== ENCOUNTER 2021-10-17 15:37 | Outpatient (REF) | payer OTHER, SELFPAY ==
[2021-10-17 13:10] LABS: Abs Immature Grans 0.02 10^3/uL (0.0-0.06); Absolute Basophil Count 0.03 10^3/uL (0.0-0.2); Absolute Eosinophil Count 0.02 10^3/uL (0.0-0.7); Absolute Lymphocyte Count 0.75 10^3/uL (1.2-3.4); Absolute Monocyte Count 0.72 10^3/uL (0.1-0.8); Absolute Neutrophil Count 5.43 10^3/uL (1.2-6.7); Basophils % 0.4; Eosinophils % 0.3; HCT 35.3 % (36.0-46.0); HGB 11.3 g/dL (11.2-15.7); Immature Grans % 0.3; Lymphocytes % 10.8; MCH 32.8 pg (27.0-33.0); MCV 102.3 fL (80-95); MPV 9.9 fL (8.0-11.0); Monocytes % 10.3; Neutrophils % 77.9; Nucleated RBC 0 %; Platelet Count 258 10^3/uL (130-400); RBC 3.45 10^6/uL (3.93-5.22); RDW 16.2 % (11.7-14.6); RDW-SD 59.8 fL; WBC 6.97 10^3/uL (4.4-10.8)
== END 2021-10-17 15:38 | disposition home or self-care (01) ==
LOC: LBN 15:37
PROVIDERS: Visit Provider Family Medicine
DX: A41.9 Sepsis, unspecified organism (principal)
CPT/HCPCS: 85025; 86140

== ENCOUNTER 2021-10-30 18:34 | Outpatient (REF) | payer OTHER, SELFPAY ==
[2021-10-30 19:46] LABS: Abs Immature Grans 0.01 10^3/uL (0.0-0.06); Absolute Basophil Count 0.05 10^3/uL (0.0-0.2); Absolute Eosinophil Count 0.04 10^3/uL (0.0-0.7); Absolute Monocyte Count 0.66 10^3/uL (0.1-0.8); Absolute Neutrophil Count 5.51 10^3/uL (1.2-6.7); Basophils % 0.7; Eosinophils % 0.6; HCT 33.4 % (36.0-46.0); HGB 10.6 g/dL (11.2-15.7); Immature Grans % 0.1; Lymphocytes % 8.7; MCH 32.2 pg (27.0-33.0); MCHC 31.7 % (32.0-36.0); MCV 101.5 fL (80-95); MPV 9.6 fL (8.0-11.0); Monocytes % 9.6; Neutrophils % 80.3; Nucleated RBC 0 %; Platelet Count 311 10^3/uL (130-400); RBC 3.29 10^6/uL (3.93-5.22); RDW 14.3 % (11.7-14.6); RDW-SD 53.3 fL; WBC 6.87 10^3/uL (4.4-10.8)
[2021-10-30 20:16] LABS: ALT 9 U/L (14-59); AST 31 U/L (15-37); Albumin 3.2 g/dL (3.4-5.0); Alkaline Phosphatase 207 U/L (46-116); Anion Gap 7.1 mmol/L (3-11); BUN 29 mg/dL (7-18); Bilirubin, Total 0.8 mg/dL (0.2-1.0); CO2 33.9 mmol/L (21.0-32.0); CREATININE 3.4 mg/dL (0.55-1.02); Calcium 9.3 mg/dL (8.5-10.1); Chloride 95 mmol/L (98-107); Estimated GFR 12.93 (mL/min/1.73m2); Glucose 97 mg/dL (74-106); Sodium 136 mmol/L (136-145); Total Protein 8.1 g/dL (6.4-8.2)
[2021-10-30 21:39] LABS: NT-proBNP > 35000 pg/mL (<300)
== END 2021-10-30 18:35 | disposition home or self-care (01) ==
LOC: LBN 18:34
PROVIDERS: Visit Provider Family Medicine
DX: N18.6 End stage renal disease (principal); I50.22 Chronic systolic (congestive) heart failure
CPT/HCPCS: 80053; 83880; 85025

== ENCOUNTER 2021-10-31 08:46 | Outpatient (CLI) | payer OTHER, SELFPAY ==
--- NOTE | 2021-10-31 09:30 | RT.EKG_ITS ---
APPROVED REPORT Exam: Resting ECG Reason for Exam: ekg abnormality Patient Location: O HR:94 bpm ECG Measurements Heart Rate 94 AXIS NJ 208 P 27 QRSd 107 QRS -35 QT 400 T 109 QTc 502 Conclusion Sinus rhythm...normal P axis, V-rate 60- 99 Ventricular premature complex...V complex w/ short R-R interval Borderline prolonged NJ interval...NJ >207, V-rate 91-120 LVH with secondary repolarization abnormality...multi-LVH criteria, abnrm ST-T Anterior infarct, old...Q >40mS, abnormal ST-T, V2-V5 Prolonged QT interval...QTc >500mS
== END 2021-10-31 08:47 | disposition home or self-care (01) ==
PROVIDERS: Visit Provider Nurse Practitioner Family
DX: R94.31 Abnormal electrocardiogram [ECG] [EKG] (principal); I49.3 Ventricular premature depolarization; I25.2 Old myocardial infarction; I45.81 Long QT syndrome
CPT/HCPCS: 93005; 93010

== ENCOUNTER 2021-10-31 11:01 | Emergency (ER) | payer OTHER, SELFPAY ==
--- NOTE | 2021-10-31 11:00 | RT.EKG_ITS ---
APPROVED REPORT Exam: Resting ECG Reason for Exam: fatigue Patient Location: E HR:92 bpm ECG Measurements Heart Rate 92 AXIS NC 218 P 33 QRSd 105 QRS -40 QT 395 T 102 QTc 489 Conclusion Sinus rhythm...normal P axis, V-rate 60- 99 Prolonged NC interval...NC >215, V-rate 91-120 Left ventricular hypertrophy...multiple LVH criteria Inferior infarct, old...Q >35mS, II III aVF Anterior infarct, old...Q >40mS, abnormal ST-T, V2-V5 Nonspecific T abnormalities, lateral leads...T <-0.10mV, I aVL V5 V6 Physician: Rate 92, sinus rhythm, QTC 489, NC 218, prolonged NC interval. Slight less than a millime ter elevation in V1, V2, and V3. No reciprocal depression. No inverted T waves. No evidence of KHARI TN. This slight ST/T wave abnormality appears to be unchanged from EKG earlier today, but new compar ed to EKG from 11/07/2020
--- NOTE | 2021-10-31 11:15 | DI.RAD_ITS ---
Exam(s) XR CHEST 2V PA LATERAL EXAM: XR CHEST 2V PA LATERAL CLINICAL HISTORY: elevated bnp, chf TECHNIQUE: COMPARISON: CR XR CHEST 2V PA LATERAL from 11/02/2019 FINDINGS: The heart is enlarged. There is no gross pleural effusion. There is some prominence of pulmonary in terstitial markings raising the possibility of mild CHF. No focal consolidation seen. IMPRESSION: The appearance is suggestive of mild CHF. RADIATION DOSE DELIVERED: Total DLP
--- NOTE | 2021-10-31 11:20 | ED.GENADUL_ITS ---
Discharge Plan Disposition Patient Disposition: SNF (LEVEL 1) [facility] Condition: Stable Discharge Details Clinical Impression: CHF (congestive heart failure) Primary Care Provider: Janet Mccrary ED Provider: Thomas Dos Santos Home Meds and New Rx's Prescriptions: Continued B complex with C 20-folic acid 1 mg Capsule 1 mg PO DAILY RF: 0 Velphoro 500 mg Tablet,Chewable 500 mg RF: 0 hydroxyzine HCl 25 mg tablet 25 mg PO HS RF: 0 oxycodone-acetaminophen [Percocet] 5-325 mg tablet 1 tab PO TID PRNQty: 8 RF: 0 metoprolol succinate 50 MG tablet extended release 24 hr 100 mg PO DAILY RF: 0 nitroglycerin 0.4 MG tablet, sublingual 0.4 mg Sublingual PRN PRNRF: 0 aspirin [Aspirin Low-Strength] 81 MG tablet,chewable 81 mg PO DAILY RF: 0 torsemide [Demadex] 20 MG tablet 40 mg PO DAILY RF: 0 losartan 50 mg Tablet 50 mg PO DAILY RF: 0 spironolactone 25 mg Tablet 25 mg PO DAILY RF: 0 ropinirole 0.25 mg Tablet 0.5 mg PO HS RF: 0 aspirin 81 mg Tablet,Chewable 81 mg PO DAILY RF: 0 hydralazine 10 mg tablet RF: 0 lidocaine 4 % Adhesive Patch,Medicated 1 patch TOPICAL DAILY PRNRF: 0 melatonin 3 mg Tablet RF: 0 tramadol 50 mg tablet RF: 0 pantoprazole 40 mg tablet,delayed release (DR/EC) 40 mg PO DAILY RF: 0 acetaminophen 500 mg Capsule 500 mg PO Q6H PRNRF: 0 Discharge Instructions Instructions: Heart Failure (ED) Additional Instructions: Work-up in the ER reveals congestive heart failure which is known, an additional dose of Lasix was given here. I spoke with the cardiology team at [facility] who believe discharge is reasonable with outpatient follow-up. He will have dialysis tomorrow. Please watch for new or worsening symptoms and return to the ER for any concerns. Otherwise reach out to your primary care provider and cardiology team tomorrow to discuss your ER visit and need for outpatient reevaluation Discharge Data Discharge Date/Time-TO BE ENTERED AT DEPARTURE: 10/31/21 16:01 Medical Decision Making <Thomas Dos Santos PA - Last Filed: 11/01/21 08:40> This is an 81-year-old female who resides at [facility], end-stage dialysis patient with dialysis on Saturday, Saturday, Saturday, received her dialysis yesterday, history of CHF, presenting to the ER today because she felt funny yesterday but now feels at her baseline. Outpatient laboratory values were obtained through her rehab facility as well as an EKG. BNP was noted to be elevated and they noted EKG changes sent to the ER for further evaluation. Patient is currently asymptomatic and reports being at her baseline. Reports a mild baseline subjective shortness of breath which is unchanged. Clinically she appears well, nontoxic, mentating without difficulty. Lungs are slightly diminished but otherwise clear and O2 sats are in the mid 90s on room air. Her initial blood pressure was 88/59, after rechecking her pressure it was 95/83. When looking at her blood pressure trend, this is not far from her baseline. Her respirations noted at the time of triage was 44 but during my evaluation they were 22, I do question if there may have been some sort of artifact. The expectation that she be evaluated in the ER here but then subsequently knott sferred to [facility] where she receives her cardiology care. Unfortunately [facility] is at capacity today but I will be sure to reach out to her cardiology team once her work-up here is completed. Laboratory values did not reveal any evidence of leukocytosis or anemia. Sodium 136 potassium 4.4 her creatinine is 4.3 with a GFR of 9.86. Glucose 126. Magnesium 2.2. Troponin is 56 BNP greater than 35,000. Albumin 3.2. Patient given 40 IV Lasix. She did urinate multiple times during her ER observation. She and her are agreeable to awaiting a delta troponin and cardiology consultation. She continues to appear well, O2 sat are 96% on room air, not requiring any supplemental oxygen. Blood pressure 102/76. Pulse remains in the high 80s. repeat EKG obtained at 1434, please see official report by Dr. Medrano. Sinus rhythm, LVH, nonspecific T wave abnormalities, ventricular of 90, no STEMI. No dynamic changes when compared to initial EKG. Delta troponin is 55 I was able to speak with BRITTA Fontaine, cardiology at [facility]. She is able to review an EKG from July 2021, no dynamic changes when compared to EKG today, which is very reassuring that her EKG changes are not acute as of today. Clinically she is not in severe or even moderate CHF. Her BNP is greater than 35,000; however, this is not far from what appears to be her baseline. Given troponin and delta troponin are unremarkable, she feels as though discharge from our ER is reasonable with outpatient follow-up and will have dialysis tomorrow. Patient does not require any supplemental oxygen. We will proceed with her typical dialysis tomorrow. Cardiology is happy to follow her as an outpatient. This plan was discussed both with the patient and her who are agreeable. Strict discharge and return precautions were provided. This documentation was generated using [employer] ([employer]) dictation system, please disregard any oddities of phrase or misspellings. Medical Records Medical records reviewed: Yes I reviewed the patient's medical records. Imaging Data Radiologic Study: Attestation: I personally reviewed and interpreted this imaging study as follows: Imaging: X-Ray Radiologist's impression: Exam(s) XR CHEST 2V PA LATERAL EXAM: XR CHEST 2V PA LATERAL CLINICAL HISTORY: elevated bnp, chf TECHNIQUE: COMPARISON: CR XR CHEST 2V PA LATERAL from 11/02/2019 FINDINGS: The heart is enlarged. There is no gross pleural effusion. There is some prominence of pulmonary interstitial markings raising the possibility of mild CHF. No focal consolidation seen. IMPRESSION: The appearance is suggestive of mild CHF. Lab Data Lab results reviewed: Yes I reviewed the patient's lab results. Labs: Laboratory Tests Range/Units 10/31/21 10/31/21 10/31/21 11:18 11:24 13:01 WBC (4.4-10.8) 10^3/uL 7.01 RBC (3.93-5.22) 10^6/uL 3.50 L Hgb (11.2-15.7) g/dL 11.3 Hct (36.0-46.0) % 36.0 MCV (80-95) fL 102.9 H MCH (27.0-33.0) pg 32.3 MCHC (32.0-36.0) % 31.4 L RDW (11.7-14.6) % 14.4 Plt Count (130-400) 10^3/uL 276 MPV (8.0-11.0) fL 9.0 Immature Gran % 0.3 Neutrophils % 81.8 Lymphocytes % 8.6 Monocytes % 8.3 Eosinophils % 0.3 Basophils % 0.7 Nucleated RBC % % 0 Absolute Neutrophils (1.2-6.7) 10^3/uL 5.74 Absolute Lymphocytes (1.2-3.4) 10^3/uL 0.60 L Absolute Monocytes (0.1-0.8) 10^3/uL 0.58 Absolute Eosinophils (0.0-0.7) 10^3/uL 0.02 Absolute Basophils (0.0-0.2) 10^3/uL 0.05 Sodium (136-145) mmol/L 136 Potassium (3.5-5.1) mmol/L 4.4 Chloride (98-107) mmol/L 94 L Carbon Dioxide (21.0-32.0) mmol/L 33.1 H Anion Gap (3-11) mmol/L 8.9 BUN (7-18) mg/dL 39 H D Creatinine (0.55-1.02) mg/dL 4.3 H* D Estimated GFR/1.73 m2 (mL/min/1.73m2) 9.86 Glucose (74-106) mg/dL 126 H Calcium (8.5-10.1) mg/dL 9.3 Magnesium (1.8-2.4) mg/dL 2.2 Total Bilirubin (0.2-1.0) mg/dL 0.7 AST (15-37) U/L 30 ALT (14-59) U/L < 6 L Alkaline Phosphatase (46-116) U/L 221 H Troponin I (<or=60) ng/L 56 NT-Pro-B Natriuret Pep (<300) pg/mL > 09401 H Total Protein (6.4-8.2) g/dL 8.7 H Albumin (3.4-5.0) g/dL 3.2 L Urine Color Cancelled Urine Clarity Cancelled Urine pH Cancelled Ur Specific [place] Cancelled Urine Protein Cancelled Urine Ketones Cancelled Urine Blood Cancelled Urine Nitrite Cancelled Urine Bilirubin Cancelled Urine Urobilinogen Cancelled Ur Leukocyte Esterase Cancelled Urine Glucose Cancelled Range/Units 10/31/21 14:43 WBC (4.4-10.8) 10^3/uL RBC (3.93-5.22) 10^6/uL Hgb (11.2-15.7) g/dL Hct (36.0-46.0) % MCV (80-95) fL MCH (27.0-33.0) pg MCHC (32.0-36.0) % RDW (11.7-14.6) % Plt Count (130-400) 10^3/uL MPV (8.0-11.0) fL Immature Gran % Neutrophils % Lymphocytes % Monocytes % Eosinophils % Basophils % Nucleated RBC % % Absolute Neutrophils (1.2-6.7) 10^3/uL Absolute Lymphocytes (1.2-3.4) 10^3/uL Absolute Monocytes (0.1-0.8) 10^3/uL Absolute Eosinophils (0.0-0.7) 10^3/uL Absolute Basophils (0.0-0.2) 10^3/uL Sodium (136-145) mmol/L Potassium (3.5-5.1) mmol/L Chloride (98-107) mmol/L Carbon Dioxide (21.0-32.0) mmol/L Anion Gap (3-11) mmol/L BUN (7-18) mg/dL Creatinine (0.55-1.02) mg/dL Estimated GFR/1.73 m2 (mL/min/1.73m2) Glucose (74-106) mg/dL Calcium (8.5-10.1) mg/dL Magnesium (1.8-2.4) mg/dL Total Bilirubin (0.2-1.0) mg/dL AST (15-37) U/L ALT (14-59) U/L Alkaline Phosphatase (46-116) U/L Troponin I (<or=60) ng/L 55 NT-Pro-B Natriuret Pep (<300) pg/mL Total Protein (6.4-8.2) g/dL Albumin (3.4-5.0) g/dL Urine Color Urine Clarity Urine pH Ur Specific [place] Urine Protein Urine Ketones Urine Blood Urine Nitrite Urine Bilirubin Urine Urobilinogen Ur Leukocyte Esterase Urine Glucose ECG Data Attestation: I personally reviewed and interpreted this ECG (s) as follows: Interpretation: Please see the note by Dr. Medrano for official read. <Jarek Medrano, DO - Last Filed: 10/31/21 11:39> EKG 11: 19 Rate 92, sinus rhythm, QTC 489, UT 218, prolonged UT interval. Slight less than a millimeter elevation in V1, V2, and V3. No reciprocal depression. No inverted T waves. No evidence of STEMI. This slight ST/T wave abnormality appears to be unchanged from EKG earlier today, but new compared to EKG from 11/07/2020 HPI <BRITTA Rodriguez - Last Filed: 11/01/21 08:40> General Mode of arrival: EMS . Date/Time Provider Initiated Documentation: 10/31/21 11:02 . Limitations to Documentation: no limitations . Information obtained by: patient, family and EMS . HPI Narrative: This is an 81-year-old female, past medical history that includes PR 7 years ago with stent placement, CHF, end-stage renal disease on hemodialysis on Saturday, Saturday, Saturday, reports normal dialysis yesterday, presenting to the ER reporting she did not feel well yesterday, outpatient EKG today was concerning, and her BNP is elevated. Patient reports nonfocal symptoms yesterday, simply did not feel well but denies any chest pain. Patient reports baseline shortness of breath which is unchanged. Patient sent to the ER via EMS from her rehab facility with expectation to be transferred to [facility] where her cardiology team resides. Currently she is asymptomatic. Patient states that she has been at the rehab facility for the last month or so and hopeful that she can return home after she regains her strength and has the ability to ambulate safely. She denies any fever, headache, chest pain, worsening shortness of breath, abdominal pain, nausea, vomiting, worsening swelling in her legs. She does tell me that she was recently treated for a staph infection in her legs and had some redness and weeping which is also at her baseline. Related Data Home Medications Medication Instructions Recorded Confirmed aspirin [Aspirin Low-Strength] 81 mg PO DAILY 12/24/16 10/31/21 metoprolol succinate 100 mg PO DAILY 12/24/16 07/27/21 nitroglycerin 0.4 mg SUBLINGUAL PRN PRN 12/24/16 10/31/21 torsemide [Demadex] 40 mg PO DAILY 04/02/17 10/31/21 losartan 50 mg PO DAILY 02/25/19 07/27/21 ropinirole 0.5 mg PO HS 02/25/19 10/31/21 spironolactone 25 mg PO DAILY 02/25/19 10/31/21 B complex with C 20-folic acid 1 mg PO DAILY 11/02/19 10/31/21 Velphoro 500 mg 11/02/19 hydroxyzine HCl 25 mg PO HS 06/02/21 07/27/21 oxycodone-acetaminophen [Percocet] 1 tab PO TID PRN #8 tab 07/27/21 acetaminophen 500 mg PO Q6H PRN 10/31/21 10/31/21 aspirin 81 mg PO DAILY 10/31/21 10/31/21 hydralazine 10/31/21 lidocaine 1 patch TOPICAL DAILY PRN 10/31/21 10/31/21 melatonin mg 10/31/21 pantoprazole 40 mg PO DAILY 10/31/21 10/31/21 tramadol mg 10/31/21 Previous Rx's Medication Instructions Recorded oxycodone-acetaminophen [Percocet] 1 tab PO TID PRN #8 tab 07/27/21 Allergies Allergy/AdvReac Type Severity Reaction Status Date / Time allopurinol AdvReac Skin Rash Unverified 10/31/21 11:11 Influenza Virus Vaccines AdvReac Other (See Unverified 10/31/21 11:11 Comment) lisinopril AdvReac Other (See Unverified 10/31/21 11:11 Comment) Kbsvdyy-PBV-MqV Reductase AdvReac Other (See Unverified 10/31/21 11:11 Inhibitor Comment) [Cywhqon-Zen-Jbp Reductase Inhibitor] General Stated Complaint: [employer]Medical ARIES: 3 Review of Systems <BRITTA Rodriguez - Last Filed: 11/01/21 08:40> Constitutional Constitutional: Denies fatigue and Denies fever(s) ENT Ears, Nose, Mouth, and Throat: Denies neck pain Cardiovascular Cardiovascular: Denies chest pain and Reports dyspnea Respiratory Respiratory: Denies cough and Reports dyspnea Gastrointestinal Gastrointestinal: Denies abdominal pain, Denies nausea and Denies vomiting Musculoskeletal Musculoskeletal: Denies back pain and Denies neck pain Integumentary/Breasts Skin/Breast: Reports erythema and Reports rash Neurologic Neurologic: Reports weakness (Generalized) Endocrine Endocrine: Denies fatigue Hematologic/Lymphatic Hematologic/Lymphatic: Denies easy bleeding and Denies easy bruising PFSH <BRITTA Rodriguez - Last Filed: 11/01/21 08:40> All Active Problems (Updated 10/31/21 @ 15:52 by BRITTA Rodriguez) Hip pain, left (Acute) Hip pain, right (Acute) CHF (congestive heart failure) (Chronic) Medical History (Updated 10/31/21 @ 15:52 by BRITTA Rodriguez) CHF (congestive heart failure) ESRD on hemodialysis Social History Smoking/Tobacco Use Status: Never Smoking risk assessment performed?: Yes Drug use: Never Details: cbd Do you feel safe at home: Yes Do you feel safe in your relationship?: Yes Exam <BRITTA Rodriguez - Last Filed: 11/01/21 08:40> Const General: cooperative, healthy appearing, comfortable and no acute distress Orientation: alert, awake and oriented x3 HENMT Head: normal to inspection, normocephalic and atraumatic Face and sinus: normal facial exam Mouth: moist mucous membranes Eyes General: appearance normal, both eyes and all related structures Conjunctivae: conjunctivae normal Neck Neck: normal visual inspection, trachea midline and supple Resp Effort & Inspection: normal respiratory effort and able to speak in complete sentences Auscultation: diminished lung sounds bilaterally in the lower lung acuña (Minimally) Cardio Rate: regular rate Rhythm: regular rhythm GI Palpation: soft and nontender Back/Spine/Pelvis Back: No back tenderness Skin Lesions: no lesions Neuro General: patient alert, patient awake, moves all extremities and no focal motor deficits Cognition: normal cognition Speech: speech normal Motor: muscle tone normal throughout Sensory Exam: no sensory deficits noted Extrem General: full ROM, capillary refill normal and no calf tenderness Other: Bilateral distal lower extremities with mild hyperpigmentation, erythema, there is a minimal amount of weeping from the left leg. 1+ edema bilaterally. No calf discomfort. No warmth or tenderness to palpation. Normal capillary refill and dorsalis pedal pulse. Per patient, she does tell me this is baseline. Psych Appearance: grossly normal Mental Status: mental status grossly normal
[2021-10-31 11:30] LABS: Abs Immature Grans 0.02 10^3/uL (0.0-0.06); Absolute Basophil Count 0.05 10^3/uL (0.0-0.2); Absolute Eosinophil Count 0.02 10^3/uL (0.0-0.7); Absolute Monocyte Count 0.58 10^3/uL (0.1-0.8); Absolute Neutrophil Count 5.74 10^3/uL (1.2-6.7); Basophils % 0.7; Eosinophils % 0.3; HGB 11.3 g/dL (11.2-15.7); Immature Grans % 0.3; Lymphocytes % 8.6; MCH 32.3 pg (27.0-33.0); MCHC 31.4 % (32.0-36.0); MCV 102.9 fL (80-95); Monocytes % 8.3; Neutrophils % 81.8; Nucleated RBC 0 %; Platelet Count 276 10^3/uL (130-400); RDW 14.4 % (11.7-14.6); RDW-SD 54.5 fL; WBC 7.01 10^3/uL (4.4-10.8)
[2021-10-31 11:51] LABS: AST 30 U/L (15-37); Albumin 3.2 g/dL (3.4-5.0); Alkaline Phosphatase 221 U/L (46-116); Anion Gap 8.9 mmol/L (3-11); BUN 39 mg/dL (7-18); Bilirubin, Total 0.7 mg/dL (0.2-1.0); CO2 33.1 mmol/L (21.0-32.0); Calcium 9.3 mg/dL (8.5-10.1); Chloride 94 mmol/L (98-107); Estimated GFR 9.86 (mL/min/1.73m2); Glucose 126 mg/dL (74-106); Magnesium 2.2 mg/dL (1.8-2.4); Potassium 4.4 mmol/L (3.5-5.1); Sodium 136 mmol/L (136-145); Total Protein 8.7 g/dL (6.4-8.2); Troponin I 56 ng/L (<or=60)
[2021-10-31 11:52] LABS: ALT < 6 U/L (14-59); NT-proBNP > 35000 pg/mL (<300)
[2021-10-31] MEDS: Furosemide 40 MG/4 ML VIAL IVP (11:53)
[2021-10-31 11:55] LABS: CREATININE 4.3 mg/dL (0.55-1.02)
[2021-10-31 12:46] VITALS: BP 88/59; PULSE 90; RESP 44; O2SAT 93
[2021-10-31 12:47] VITALS: PULSE 91; RESP 16; O2SAT 99
[2021-10-31 12:50] VITALS: PULSE 91; RESP 36; O2SAT 96
[2021-10-31 13:09] VITALS: PULSE 97; RESP 25; O2SAT 99
[2021-10-31 13:10] VITALS: BP 109/78; PULSE 94; PULSE 96; RESP 22; O2SAT 98
[2021-10-31 13:11] VITALS: PULSE 93; RESP 40; O2SAT 99
--- NOTE | 2021-10-31 14:15 | RT.EKG_ITS ---
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 no depressions. does not meet stemi criterion
[2021-10-31 14:52] LABS: Troponin I 55 ng/L (<or=60)
== END 2021-10-31 16:01 | disposition skilled nursing facility (03) ==
PROVIDERS: Emergency Provider Physician Assistant
DX: I50.9 Heart failure, unspecified (principal); R53.83 Other fatigue; N18.6 End stage renal disease
CPT/HCPCS: 36415; 80053; 93005; 96374; 99284; 71046; 81003; 83735; 83880; 84484; 85025; 93010; J1940

== ENCOUNTER 2021-12-22 17:47 | Outpatient (CLI) | payer OTHER, SELFPAY ==
--- NOTE | 2021-12-22 | DI.RAD_ITS ---
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 TECHNIQUE: 2D digital imaging was performed of the left foot. Three images were obtained. AP, obli que and lateral views were obtained. COMPARISON: No exams were available for comparison FINDINGS: BONES: No acute fracture is present. No bony destructive lesion is seen. There is a small spur at the plantar surface of the calcaneus. JOINTS: No dislocation present. SOFT TISSUE: Atherosclerosis is present. There is soft tissue swelling seen in the foot. No radiopa que foreign body is present. IMPRESSION: 1. No acute osseous abnormality. 2. Diffuse soft tissue swelling of the foot. DATA REPOSITORY: RADIATION DOSE DELIVERED:
== END 2021-12-22 18:07 ==
PROVIDERS: Visit Provider Nurse Practitioner Family
DX: I87.2 Venous insufficiency (chronic) (peripheral) (principal); I87.313 Chronic venous hypertension (idiopathic) with ulcer of bilateral lower extremity; R22.42 Localized swelling, mass and lump, left lower limb
CPT/HCPCS: 73630

== ENCOUNTER 2021-12-25 15:35 | Emergency (ER) | payer OTHER, MEDICAID, SELFPAY ==
[2021-12-25] VITALS (53 sets, daily range): BP systolic 70–97; BP diastolic 37–63; PULSE 79–137; RESP 11–32; TEMP 36.5; O2SAT 86–100
--- NOTE | 2021-12-25 15:33 | ED.GENADUL_ITS ---
Discharge Plan Disposition Patient Disposition: HOME Condition: Stable Discharge Details Clinical Impression: Vomiting and diarrhea, Hypotension Primary Care Provider: Janet Mccrary ED Provider: Radha Verduzco Home Meds and New Rx's Prescriptions: Continued bisacodyl 10 mg suppository 10 mg PA DAILY PRN0RF gabapentin 100 mg capsule 100 mg PO QHS 0RF camphor 0.5 % lotion topical 0RF senna 8.6 mg capsule 17.2 mg PO QHS PRN (Reason: constipation) 0RF sevelamer HCl 800 mg tablet 800 mg PO TID 0RF Rx Instructions: must administer with a meal/food B complex with C 20-folic acid 1 mg Capsule 1 mg PO DAILY 0RF nitroglycerin 0.4 MG tablet, sublingual 0.4 mg Sublingual PRN PRN0RF Label Comments: has never had to use ropinirole 0.25 mg Tablet 0.5 mg PO HS 0RF aspirin 81 mg Tablet,Chewable 81 mg PO DAILY 0RF lidocaine 4 % Adhesive Patch,Medicated 1 patch TOPICAL DAILY PRN0RF melatonin 3 mg Tablet 5 mg PO HS 0RF pantoprazole 40 mg tablet,delayed release (DR/EC) 40 mg PO DAILY 0RF acetaminophen 500 mg Capsule 500 mg PO Q6H PRN0RF hydromorphone 2 mg tablet 2 mg PO Q2H PRN0RF Discharge Instructions Instructions: Acute Nausea and Vomiting (ED), Acute Diarrhea (ED) Additional Instructions: Your lab work and chest xray today is reassuring and shows no evidence of acute concerning or significant findings. Your vomiting and diarrhea may be due to a viral process. Your low blood pressure today may be related to your recent dialysis session worsened with fluid loss in vomiting and diarrhea. Take the Zofran as needed and directed for nausea and vomiting. You can continue to drink small amounts of fluid to stay hydrated. Keep a close eye on your respiratory status as you were given a significant amount of IV fluids here in the emergency department for your low blood pressure. If you develop shortness of breath, you may be accumulating fluid in your lungs and should return immediately to the emergency department for further evaluation. You may require an earlier dialysis session before your usual schedule on Saturday. Return immediately to the emergency department if you develop any worsening or new concerning symptoms. Discharge Data Discharge Date/Time-TO BE ENTERED AT DEPARTURE: 12/25/21 20:40 Medical Decision Making 1500 -- 81yo F who is DNR/DNI w/ a h/o ESRD on dialysis, CHF, Gout, HTN, Hyperlipidemia, CAD w/ a h/o coronary artery stent presents for vomiting, diarrhea, and fatigue that started after dialysis. It was reported per EMS that there were several Covid positive patients currently at the rehab. EMS reported a blood pressure of 80s/50s. Blood pressure on arrival here 97/63. Patient appears uncomfortable but nontoxic. She is oriented x3 and able to answer questions appropriately. Her abdomen is soft and nontender. While examining patient, she is noted to have yellow soft stool in her depends underwear. She has Kerlix and Misha wrap to her bilateral lower extremities saturated through which appear consistent with a substance like honey. Dressings were removed and there does not appear to be any evidence of cellulitis and new dressings placed. History and presentation does not appear consistent with CVA, ACS. Differential diagnosis includes viral process, acute dehydration, electrolyte abnormality. Will obtain screening labs, give fluids, obtain a Covid test and stool culture. 1700 --BP 72/42. We will give an additional 250 bolus. Stool too formed for C. difficile. Not enough stool obtained for stool culture. 1744 --BP 86/48. Labs reviewed and notes a normal white blood cell count. Creatinine 3.3 which is her baseline. Negative Fluvid. 1899 --blood pressure continues to remain on the low side, systolic 70s to 80s. She has gotten almost a full liter of fluid over 4 hours. Her baseline blood pressure per records and per daughter is usually in the 90s. Will continue to monitor, give patient something to eat and drink. She has been quite sleepy and Ativan may be contributing to her hypotension. 1999 -- BP 92/58 which is close to her baseline. She is sitting up and eating and denies any acute complaints. Denies chest or abdominal pain. Her heart rate was elevated when sitting up and eating into the low 100s as she may be still a bit dehydrated. She has received a total of 1 L of fluid and do not want to give any more considering her history of end-stage renal disease. Suspect she may be able to tolerate this as she recently had dialysis and has been vomiting and diarrhea. Will inform health and rehab to continue to monitor respiratory status closely if she develops any fluid overload and needs to return to the emergency department. A portable chest x-ray was obtained and does note minimal bilateral pleural effusions but no signs of pulmonary edema. Advised to follow up with the primary care doctor for re-evaluation. Usual and customary return precautions given prior to discharge. Medical Records Medical records reviewed: Yes I reviewed the patient's medical records. Imaging Data Radiologic Study: Radiologist's impression: XR Chest Exam date and time: 12/25/2021 7:32 PM Age: 81 years old Clinical indication: Other: Low blood pressure, R/O acute disease TECHNIQUE: Imaging protocol: XR of the chest. Views: 1 view. COMPARISON: CR XR CHEST 2V PA LATERAL 10/31/2021 1:30 PM FINDINGS: Tubes, catheters and devices: Monitoring wires noted. Lungs: Unremarkable. No consolidation. Pulmonary vessels are not congested. Pleural spaces: Unremarkable. No pleural effusion. No pneumothorax. Heart/Mediastinum: Moderate cardiomegaly. Bones/joints: Severe arthropathy noted in the shoulders. Other findings: Rotated exam. IMPRESSION: 1. No acute cardiopulmonary abnormality. 2. Moderate cardiomegaly. Lab Data Lab results reviewed: Yes I reviewed the patient's lab results. Labs: Laboratory Tests Range/Units 12/25/21 12/25/21 12/25/21 16:18 16:18 16:20 WBC (4.4-10.8) 10^3/uL 8.42 RBC (3.93-5.22) 10^6/uL 3.61 L Hgb (11.2-15.7) g/dL 11.7 Hct (36.0-46.0) % 35.8 L MCV (80-95) fL 99.2 H MCH (27.0-33.0) pg 32.4 MCHC (32.0-36.0) % 32.7 RDW (11.7-14.6) % 14.7 H Plt Count (130-400) 10^3/uL 234 MPV (8.0-11.0) fL 9.4 Immature Gran % 0.5 Neutrophils % 85.8 Lymphocytes % 3.7 Monocytes % 9.0 Eosinophils % 0.6 Basophils % 0.4 Nucleated RBC % % 0 Absolute Neutrophils (1.2-6.7) 10^3/uL 7.23 H Absolute Lymphocytes (1.2-3.4) 10^3/uL 0.31 L Absolute Monocytes (0.1-0.8) 10^3/uL 0.76 Absolute Eosinophils (0.0-0.7) 10^3/uL 0.05 Absolute Basophils (0.0-0.2) 10^3/uL 0.03 Sodium (136-145) mmol/L 139 Potassium (3.5-5.1) mmol/L 4.7 Chloride (98-107) mmol/L 98 Carbon Dioxide (21.0-32.0) mmol/L 33.9 H Anion Gap (3-11) mmol/L 7.1 BUN (7-18) mg/dL 27 H Creatinine (0.55-1.02) mg/dL 3.3 H Estimated GFR/1.73 m2 (mL/min/1.73m2) 13.38 Glucose (74-106) mg/dL 95 Calcium (8.5-10.1) mg/dL 8.9 Total Bilirubin (0.2-1.0) mg/dL 1.1 H AST (15-37) U/L 30 ALT (14-59) U/L 12 L Alkaline Phosphatase (46-116) U/L 198 H Total Protein (6.4-8.2) g/dL 8.0 Albumin (3.4-5.0) g/dL 2.9 L Lipase (73-393) U/L 54 Stool Campylobacter PCR Stl C.difficile Tox PCR Stool Salmonella PCR Stool Shigella PCR COVID-19 Source Nasopharynx SARS-CoV-2 (PCR) (Negative) Negative Influenza Type A (PCR) (Negative) Negative Influenza Type B (PCR) (Negative) Negative RSV (PCR) (Negative) Negative Shiga Toxin (PCR) Range/Units 12/25/21 12/25/21 16:30 16:30 WBC (4.4-10.8) 10^3/uL RBC (3.93-5.22) 10^6/uL Hgb (11.2-15.7) g/dL Hct (36.0-46.0) % MCV (80-95) fL MCH (27.0-33.0) pg MCHC (32.0-36.0) % RDW (11.7-14.6) % Plt Count (130-400) 10^3/uL MPV (8.0-11.0) fL Immature Gran % Neutrophils % Lymphocytes % Monocytes % Eosinophils % Basophils % Nucleated RBC % % Absolute Neutrophils (1.2-6.7) 10^3/uL Absolute Lymphocytes (1.2-3.4) 10^3/uL Absolute Monocytes (0.1-0.8) 10^3/uL Absolute Eosinophils (0.0-0.7) 10^3/uL Absolute Basophils (0.0-0.2) 10^3/uL Sodium (136-145) mmol/L Potassium (3.5-5.1) mmol/L Chloride (98-107) mmol/L Carbon Dioxide (21.0-32.0) mmol/L Anion Gap (3-11) mmol/L BUN (7-18) mg/dL Creatinine (0.55-1.02) mg/dL Estimated GFR/1.73 m2 (mL/min/1.73m2) Glucose (74-106) mg/dL Calcium (8.5-10.1) mg/dL Total Bilirubin (0.2-1.0) mg/dL AST (15-37) U/L ALT (14-59) U/L Alkaline Phosphatase (46-116) U/L Total Protein (6.4-8.2) g/dL Albumin (3.4-5.0) g/dL Lipase (73-393) U/L Stool Campylobacter PCR Cancelled Stl C.difficile Tox PCR Cancelled Stool Salmonella PCR Cancelled Stool Shigella PCR Cancelled COVID-19 Source SARS-CoV-2 (PCR) (Negative) Influenza Type A (PCR) (Negative) Influenza Type B (PCR) (Negative) RSV (PCR) (Negative) Shiga Toxin (PCR) Cancelled HPI General Date/Time Provider Initiated Documentation: 12/25/21 15:42 . Limitations to Documentation: no limitations . Information obtained by: patient and EMS . HPI Narrative: Pt is an 81yo F who is DNR/DNI w/ a h/o ESRD on dialysis, CHF, Gout, HTN, Hyperlipidemia, CAD w/ a h/o coronary artery stent presents for vomiting and diarrhea today that started after dialysis. Staff at [facility] and rehab noted that pt has been out of it and difficult to arouse. EMS noted her BP to be hypotensive, blood pressure 80s/50s. Patient states she has vomited and had diarrhea 3 times today. She states this started after dialysis. She denies any known fever, chest pain, shortness of breath, abdominal pain. Patient does admit to chronic right-sided hip pain is states it is no worse than usual. Patient states she does not ambulate and is mostly bedbound. She states she makes very minimal urine. It was reported by EMS that there are several Covid positive patient is currently out of rehab. It was also reported that patient had 2 negative Covid tests today. Related Data Home Medications Medication Instructions Recorded Confirmed nitroglycerin 0.4 mg sublingual 0.4 mg SUBLINGUAL PRN PRN 12/24/16 12/25/21 tablet ropinirole 0.25 mg tablet 0.5 mg PO HS 02/25/19 12/25/21 vitamin B complex and vitamin C 1 mg PO DAILY 11/02/19 12/25/21 no.20-folic acid 1 mg capsule acetaminophen 500 mg capsule 500 mg PO Q6H PRN 10/31/21 12/25/21 aspirin 81 mg chewable tablet 81 mg PO DAILY 10/31/21 12/25/21 lidocaine 4 % topical patch 1 patch TOPICAL DAILY PRN 10/31/21 12/25/21 melatonin 3 mg tablet 5 mg PO HS 10/31/21 12/25/21 pantoprazole 40 mg tablet,delayed 40 mg PO DAILY 10/31/21 12/25/21 release sevelamer HCl 800 mg tablet 800 mg PO TID 11/01/21 12/25/21 bisacodyl 10 mg rectal suppository 10 mg PA DAILY PRN 11/28/21 12/25/21 camphor 0.5 % lotion applic TOPICAL 11/28/21 11/28/21 gabapentin 100 mg capsule 100 mg PO QHS 11/28/21 12/25/21 sennosides 8.6 mg capsule (senna) 17.2 mg PO QHS PRN cap 11/28/21 12/25/21 hydromorphone 2 mg tablet 2 mg PO Q2H PRN 12/25/21 12/25/21 Allergies Allergy/AdvReac Type Severity Reaction Status Date / Time allopurinol AdvReac Skin Rash Unverified 03/07/22 16:43 Influenza Virus Vaccines AdvReac N/V Unverified 12/25/21 16:47 lisinopril AdvReac UNKNOWN Unverified 12/25/21 16:47 Dsordyf-YRC-CnS Reductase AdvReac muscle Unverified 12/25/21 16:47 Inhibitor aches [Aoswtyk-Sua-Lks Reductase Inhibitor] General Stated Complaint: Nausea/Vomit/Diar ARIES: 3 Review of Systems All systems reviewed & are unremarkable except as noted in HPI and below Constitutional Constitutional: Reports as per HPI, Denies chills and Denies fever(s) Eyes Eyes: Denies blurry vision ENT Ears, Nose, Mouth, and Throat: Denies dizziness, Denies sore throat and Denies throat swelling Cardiovascular Cardiovascular: Denies chest pain and Denies dyspnea Respiratory Respiratory: Denies cough and Denies dyspnea Gastrointestinal Gastrointestinal: Denies abdominal pain, Reports diarrhea and Reports vomiting Genitourinary Genitourinary: Denies hematuria and Denies dysuria Musculoskeletal Musculoskeletal: Denies back pain and Denies numbness Integumentary/Breasts Skin/Breast: Denies lesions and Denies rash Neurologic Neurologic: Denies dizziness, Denies localized weakness and Denies numbness Allergic/Immunologic Allergic/Immunologic: Denies throat swelling PFSH All Active Problems (Updated 12/25/21 @ 20:12 by Radha Verduzco DO) Vomiting and diarrhea (Acute) Hypotension (Acute) Hypotension (Acute) Decreased cryptanalyst strength (Acute) H/O septic arthritis (Acute) Do not resuscitate status (Acute) Weakness (Acute) Itching (Acute) Do not resuscitate discussion (Acute) Wheelchair bound (Acute) Advised to contact social science research assistant (Acute) Hip pain, left (Acute) Hip pain, right (Acute) Medical History (Updated 12/25/21 @ 20:12 by Radha Verduzco DO) CHF (congestive heart failure) ESRD on hemodialysis Social History Smoking/Tobacco Use Status: Never Smoking risk assessment performed?: Yes Drug use: Never Substance use type: does not use Details: cbd Do you feel safe at home: Yes Do you feel safe in your relationship?: Yes Exam Const General: cooperative and no acute distress Orientation: alert and awake HENMT Head: normal to inspection Ears: hearing grossly normal bilaterally Mouth: oral mucosae normal Eyes General: appearance normal, both eyes and all related structures Neck Neck: normal visual inspection Resp Effort & Inspection: normal respiratory effort and able to speak in complete sentences Auscultation: clear to auscultation bilaterally Cardio Rate: regular rate Rhythm: regular rhythm GI Inspection: normal to inspection Palpation: soft, not firm, no guarding, not rigid and nontender Skin General skin exam: no rashes or lesions noted Neuro General: patient alert, patient awake and patient oriented x3 Motor: muscle tone normal throughout Extrem General: full ROM Other: Sticky brown gauze dressings to bilateral anterior legs. There is no surrounding erythema, induration, fluctuance. Psych Appearance: grossly normal Affect: normal affect
[2021-12-25] MEDS: Normal Saline 250 ML IV ×3 (16:10→18:32)
[2021-12-25] MEDS: LORazepam 2 MG/ML VIAL 0.5 MG IVP (16:28)
[2021-12-25 16:29] LABS: Abs Immature Grans 0.04 10^3/uL (0.0-0.06); Absolute Basophil Count 0.03 10^3/uL (0.0-0.2); Absolute Eosinophil Count 0.05 10^3/uL (0.0-0.7); Absolute Lymphocyte Count 0.31 10^3/uL (1.2-3.4); Absolute Monocyte Count 0.76 10^3/uL (0.1-0.8); Absolute Neutrophil Count 7.23 10^3/uL (1.2-6.7); Basophils % 0.4; Eosinophils % 0.6; HCT 35.8 % (36.0-46.0); HGB 11.7 g/dL (11.2-15.7); Immature Grans % 0.5; Lymphocytes % 3.7; MCH 32.4 pg (27.0-33.0); MCHC 32.7 % (32.0-36.0); MCV 99.2 fL (80-95); MPV 9.4 fL (8.0-11.0); Neutrophils % 85.8; Nucleated RBC 0 %; Platelet Count 234 10^3/uL (130-400); RBC 3.61 10^6/uL (3.93-5.22); RDW 14.7 % (11.7-14.6); RDW-SD 53.9 fL; WBC 8.42 10^3/uL (4.4-10.8)
[2021-12-25] MEDS: Ondansetron 4 MG/2 ML VIAL IVP (16:29)
[2021-12-25 16:43] LABS: ALT 12 U/L (14-59); AST 30 U/L (15-37); Albumin 2.9 g/dL (3.4-5.0); Alkaline Phosphatase 198 U/L (46-116); Anion Gap 7.1 mmol/L (3-11); BUN 27 mg/dL (7-18); Bilirubin, Total 1.1 mg/dL (0.2-1.0); CO2 33.9 mmol/L (21.0-32.0); CREATININE 3.3 mg/dL (0.55-1.02); Calcium 8.9 mg/dL (8.5-10.1); Chloride 98 mmol/L (98-107); Estimated GFR 13.38 (mL/min/1.73m2); Glucose 95 mg/dL (74-106); Lipase 54 U/L (73-393); Potassium 4.7 mmol/L (3.5-5.1); Sodium 139 mmol/L (136-145)
[2021-12-25 17:09] LABS: COVID-19 PCR Negative (Negative); Influenza A PCR Negative (Negative); Influenza B PCR Negative (Negative); RSV PCR Negative (Negative)
[2021-12-25 17:10] LABS: Source Nasopharynx
--- NOTE | 2021-12-25 19:30 | DI.RAD_ITS ---
Exam(s) XR PORTABLE CHEST AP EXAM: XR PORTABLE CHEST AP CLINICAL HISTORY: low blood pressure, r/o acute disease. TECHNIQUE: 2D digital imaging was performed. COMPARISON: CR XR CHEST 2V PA LATERAL from 10/31/2021 FINDINGS: Cardiomegaly again noted. Patient rotated towards the right. Left lung is clear. There is atelectasis in the right lung base. Possible hiatal hernia. No pulmonary edema. No pneumothorax. IMPRESSION: As above. Recommend non portable PA and lateral views when clinically possible. Alternatively CT sc an. DATA REPOSITORY: RADIATION DOSE DELIVERED: All CT scans at this facility use at least one of these dose optimization techniques: automated exposure control; mA and/or kV adjustment per patient size (includes targeted e xams where dose is matched to clinical indication); or iterative reconstruction.
--- NOTE | 2021-12-25 20:21 | DI.VRAD_ITS ---
PROCEDURE INFORMATION: Exam: XR Chest Exam date and time: 12/25/2021 7:32 PM Age: 81 years old Clinical indication: Other: Low blood pressure, R/O acute disease TECHNIQUE: Imaging protocol: XR of the chest. Views: 1 view. COMPARISON: CR XR CHEST 2V PA LATERAL 10/31/2021 1:30 PM FINDINGS: Tubes, catheters and devices: Monitoring wires noted. Lungs: Unremarkable. No consolidation. Pulmonary vessels are not congested. Pleural spaces: Unremarkable. No pleural effusion. No pneumothorax. Heart/Mediastinum: Moderate cardiomegaly. Bones/joints: Severe arthropathy noted in the shoulders. Other findings: Rotated exam. IMPRESSION: 1. No acute cardiopulmonary abnormality. 2. Moderate cardiomegaly. Dictated and Authenticated by: John Campos MD. Ordering:SAMIR Garcia MD
[2021-12-25] MEDS: Ondansetron O.D.T. 4 MG TABEF, 3 TABS/BTL PO (20:37)
== END 2021-12-25 20:40 | disposition home or self-care (01) ==
PROVIDERS: Emergency Provider Physician Assistant
DX: R11.2 Nausea with vomiting, unspecified (principal); R19.7 Diarrhea, unspecified; I95.9 Hypotension, unspecified; I13.2 Hypertensive heart and chronic kidney disease with heart failure and with stage 5 chronic kidney disease, or end stage renal disease; N18.6 End stage renal disease; I50.9 Heart failure, unspecified
CPT/HCPCS: 36415; 80053; 83690; 87493; 87505; 87637; 96361; 96374; 96375; 99284; 71045; 85025; J2060; J2405

== ENCOUNTER 2022-01-21 11:19 | Emergency (ER) | payer MEDICARE, MEDICAID, SELFPAY ==
--- NOTE | 2022-01-21 11:15 | W.ED.GENAD ---
Discharge Plan Disposition Patient Disposition: HOME Condition: Stable Discharge Details Clinical Impression: Dialysis patient, Dialysis complication Primary Care Provider: Janet Mccrary ED Provider: Rosemary Lawson Home Meds and New Rx's Prescriptions: Continued bisacodyl 10 mg suppository 10 mg IA DAILY PRN0RF senna 8.6 mg capsule 17.2 mg PO QHS PRN (Reason: constipation) 0RF gabapentin 100 mg capsule 100 mg PO TID PRN0RF Rx Instructions: evening lorazepam 2 mg/mL concentrate 0.5 mg PO Q4H PRN PRN (Reason: anxiety) Qty: 30 0RF Rx Instructions: hospice patient hydromorphone (PF) 2 mg/mL solution See Rx Instructions subcut Q1H MDD 24 mg Qty: 50 0RF Rx Instructions: subcut every 1 hour; hydromorphone by CADD pump at 0.5 mg/hr with 0.5 mg bolus q 30 minutes; 2mg/ml HOSPICE patient sevelamer HCl 800 mg tablet 800 mg PO DIRECTED 0RF Rx Instructions: must administer with a meal/food aspirin 81 mg Tablet,Delayed Release (Dr/Ec) 81 mg PO DIRECTED 0RF Rx Instructions: T//Sat melatonin 5 mg Tablet 5 mg PO HS 0RF polyethylene glycol 3350 [Miralax] 17 gram/dose Powder 17 g PO DAILY 0RF pantoprazole 40 mg Tablet,Delayed Release (Dr/Ec) 40 mg PO DAILY 0RF B complex-vitamin C-folic acid 0.8 mg Tablet 1 tab PO DAILY 0RF ascorbic acid (vitamin C) [Vitamin C] 500 mg Tablet 500 mg PO DAILY 0RF cholecalciferol (vitamin D3) [Vitamin D3] 25 mcg (1,000 unit) Tablet 2,000 unit PO DAILY 0RF zinc 50 mg Tablet 50 mg PO DAILY 0RF torsemide 20 mg tablet 20 mg PO BID 0RF nitroglycerin 0.4 MG tablet, sublingual 0.4 mg Sublingual PRN PRN0RF Label Comments: has never had to use ropinirole 0.25 mg Tablet 0.5 mg PO DIRECTED 0RF Rx Instructions: HS every other day lidocaine 4 % Adhesive Patch,Medicated 1 patch TOPICAL DAILY PRN0RF acetaminophen 500 mg Capsule 1,000 mg PO Q8H PRN0RF hydromorphone 2 mg tablet 2 mg PO Q2H PRN0RF No Action hydromorphone 12 mg tablet extended release 24 hr 12 mg PO DAILY 0RF Discharge Instructions Additional Instructions: Keep dressing over catheter site so that you do not maximally scratch again You may return to dialysis as indicated by your team Return earlier should you have recurrence of bleeding or with any new or worsening complaints Referrals: Janet Mccrary MD [Primary Care Provider] - Discharge Data Discharge Date/Time-TO BE ENTERED AT DEPARTURE: 01/21/22 12:33 Medical Decision Making pt with pressure dressing over catheter site coagulation achieved prior to arrival in ED pt notably hypotensive, but reported baseline per pt and (both alert, oriented, and insightful) dressing placed over catheter for protection reassessed on 3 occassions without reoccurrence of bleeding cbc wnl hypotensive, baseline per pt and Medical Records Medical records reviewed: Yes I reviewed the patient's medical records. Lab Data Lab results reviewed: Yes I reviewed the patient's lab results. HPI General Date/Time Provider Initiated Documentation: 01/21/22 11:46. HPI Narrative: This 81-year-old female presents with report of bleeding dialysis catheter site. Received dialysis Saturday and accidentally scratched catheter site last evening and has been bleeding intermittently since that time. Denies weakness, dizziness, shortness of breath. Denies anticoagulation and takes 81 mg ASA only. Related Data Home Medications Medication Instructions Recorded Confirmed nitroglycerin 0.4 mg sublingual 0.4 mg SUBLINGUAL PRN PRN 12/24/16 01/17/22 tablet ropinirole 0.25 mg tablet 0.5 mg PO DIRECTED 02/25/19 01/21/22 acetaminophen 500 mg capsule 1,000 mg PO Q8H PRN 10/31/21 01/21/22 lidocaine 4 % topical patch 1 patch TOPICAL DAILY PRN 10/31/21 01/17/22 sevelamer HCl 800 mg tablet 800 mg PO DIRECTED 11/01/21 01/21/22 bisacodyl 10 mg rectal suppository 10 mg IA DAILY PRN 11/28/21 01/21/22 sennosides 8.6 mg capsule (senna) 17.2 mg PO QHS PRN cap 11/28/21 01/21/22 hydromorphone 2 mg tablet 2 mg PO Q2H PRN 12/25/21 01/21/22 gabapentin 100 mg capsule 100 mg PO TID PRN cap 01/02/22 01/21/22 hydromorphone (PF) 2 mg/mL See Rx Instructions SUBCUT Q1H #50 01/18/22 01/18/22 injection solution ml MDD 24 mg lorazepam 2 mg/mL oral concentrate 0.5 mg (0.25 mL) PO Q4H PRN PRN 01/18/22 01/21/22 #30 ml ascorbic acid (vitamin C) 500 mg 500 mg PO DAILY 01/21/22 01/21/22 tablet (Vitamin C) aspirin 81 mg tablet,delayed 81 mg PO DIRECTED 01/21/22 01/21/22 release cholecalciferol (vitamin D3) 25 2,000 unit PO DAILY 01/21/22 01/21/22 mcg (1,000 unit) tablet (Vitamin D3) hydromorphone 12 mg 12 mg PO DAILY 01/21/22 01/21/22 tablet,extended release 24 hr melatonin 5 mg tablet 5 mg PO HS 01/21/22 01/21/22 pantoprazole 40 mg tablet,delayed 40 mg PO DAILY 01/21/22 01/21/22 release polyethylene glycol 3350 17 17 g PO DAILY 01/21/22 01/21/22 gram/dose oral powder (Miralax) torsemide 20 mg tablet 20 mg PO BID 01/21/22 01/21/22 vitamin B complex-vitamin C-folic 1 tab PO DAILY 01/21/22 01/21/22 acid 0.8 mg tablet zinc 50 mg tablet 50 mg PO DAILY 01/21/22 01/21/22 Previous Rx's Medication Instructions Recorded hydromorphone (PF) 2 mg/mL See Rx Instructions SUBCUT Q1H #50 01/18/22 injection solution ml MDD 24 mg lorazepam 2 mg/mL oral concentrate 0.5 mg (0.25 mL) PO Q4H PRN PRN 01/18/22 #30 ml Allergies Allergy/AdvReac Type Severity Reaction Status Date / Time corticorelin ovine triflutate AdvReac Unknown Unverified 01/21/22 11:34 allopurinol AdvReac Skin Rash Unverified 01/21/22 11:33 Influenza Virus Vaccines AdvReac N/V Unverified 01/21/22 11:33 lisinopril AdvReac UNKNOWN Unverified 01/21/22 11:33 Hiqbkiy-[id number] Reductase AdvReac muscle Unverified 01/21/22 11:33 Inhibitor aches [Pndxbyl-Tkx-Mwn Reductase Inhibitor] General ARIES: 3 Review of Systems All systems reviewed & are unremarkable except as noted in HPI and below PFSH All Active Problems (Updated 01/21/22 @ 12:05 by BRITTA Maxwell) Dialysis complication (Acute) Hospice care patient (Acute) admission 01/19/22 S/P hip replacement (Acute) Family dynamics problem (Chronic) anxious about having pt home again; daughter Pratibha will stay 24/7 Mental status, decreased (Acute) intermittently oriented, then falls asleep [facility] resident (Acute) Venous stasis ulcer (Chronic) bilateral Myoclonus (Acute) ESRD (end stage renal disease) (Acute) Dialysis patient (Acute) Sensorineural hearing loss (Acute 11/30/13) Palliative care patient (Acute 12/26/16) Followed by Dr. Chavira Encounter for hospice care discussion (Acute) Vascular disease, peripheral (Chronic) Vomiting and diarrhea (Acute) Hypotension (Acute) Decreased project structural engineer strength (Acute) H/O septic arthritis (Acute) Do not resuscitate status (Acute) Weakness (Acute) Itching (Acute) Do not resuscitate discussion (Acute) Wheelchair bound (Acute) Advised to contact psych social worker (Acute) Hip pain, left (Acute) Hip pain, right (Acute) Medical History (Updated 01/21/22 @ 12:05 by BRITTA Maxwell) CHF (congestive heart failure) ESRD on hemodialysis Tinnitus (11/30/13) Family History (Updated 01/17/22 @ 16:14 by Melanie Chavira MD) Mother Heart disease Father No problems noted. Daughter No problems noted. Daughter No problems noted. Social History (Updated 01/17/22 @ 16:21 by Melanie Chavira MD) Smoking/Tobacco Use Status: Never Smoking risk assessment performed?: Yes Alcohol Intake: former Counseling given: No Drug use: Never Substance use type: does not use Counseling given: No Details: cbd Caregiver/Support person: Yes Household members: spouse Housing: house Number of Children: 5 Communication Needs: Hard of Hearing and Corrective Lenses Do you need help understanding health information?: Always Pets and animals: No Current gender identity: female What is your relationship status?: How often do you talk on the phone with friends or family?: three or more times per week How often do you get together with friends or relatives?: three or more times per week Panel score (0-1 are the most socially isolated patients): 2 What type of physical activity do you participate in: none and wheelchair-bound Frequency: does not exercise Nicki/Moravian: Holiness Agree to transfusion: No Seatbelt use: always Working smoke detector in home: Yes Fire extinguisher in home: Yes Do you feel safe at home: Yes Do you feel safe in your relationship?: Yes Additional Social history: Living at [facility] since 08/21/21. Admitted from [facility] where she had been for one month due to sepsis from her hip. She has been on dialysis for 4 years as of Oct 2021. She has 5 kids. Two live locally. Pratibha promised that when her mother goes home, she will stay there, too, with her parents. Father Rene is anxious about brining his home. Worried he can care for her. She does make some urine; would accept a catheter. Pain is controlled with oral hydromorphone; family willing to have her transition to hydromorphone pump. Very sick. EF < 10%. Told her family and staff today that she thought she would soon. Exam Const General: cooperative and frail appearing Eyes Sclera: sclerae normal Resp Effort & Inspection: normal respiratory effort Cardio Rate: regular rate Skin General skin exam: no rashes or lesions noted Neuro General: patient alert and patient oriented x3 Extrem Other: catheter noted LUE, no active bleeding, palpable bruit, no erythema or lesions noted
[2022-01-21 11:17] VITALS: BP 94/59; PULSE 72; RESP 18; TEMP 36.4; O2SAT 96
[2022-01-21 11:44] LABS: HGB 11.5 g/dL (11.2-15.7); MCH 31.3 pg (27.0-33.0); MCHC 31.1 % (32.0-36.0); MCV 100.8 fL (80-95); MPV 9.2 fL (8.0-11.0); Platelet Count 198 10^3/uL (130-400); RBC 3.67 10^6/uL (3.93-5.22); RDW 15.3 % (11.7-14.6); RDW-SD 56.7 fL; WBC 5.13 10^3/uL (4.4-10.8)
[2022-01-21 12:07] VITALS: TEMP 36.6
[2022-01-21 12:19] VITALS: BP 84/52; PULSE 72; RESP 16; TEMP 36.6; O2SAT 99
== END 2022-01-21 12:33 | disposition home or self-care (01) ==
PROVIDERS: Emergency Provider Physician Assistant; PCP Nurse Practitioner Family
DX: T82.838A Hemorrhage due to vascular prosthetic devices, implants and grafts, initial encounter (principal); N18.6 End stage renal disease; Z99.2 Dependence on renal dialysis
CPT/HCPCS: 36415; 85027; 99283